=== PATIENT | female | born 1960 | race Caucasian/White ===

== ENCOUNTER 2020-01-25 09:58 | Emergency (ER) | payer BC, SELFPAY ==
--- NOTE | ~2020-01-25 | XR_ITS ---
XR chest 2V DATE: 01/25/2020 11:01 INDICATION: Cough, congestion, fever, weakness for 6 days TECHNIQUE: PA and lateral views COMPARISON: 01/03/2010 two-view chest FINDINGS: Normal heart size. Mild aortic unfolding. No hilar or mediastinal enlargement. No pulmonary infiltrate or consolidation, pleural effusion or pulmonary vascular congestion or pneumo thorax is detected. Surgical clips, right upper quadrant, consistent with cholecystectomy. IMPRESSION: No active cardiopulmonary disease Status post cholecystectomy Reviewed, dictated and finalized at location B.
[2020-01-25 10:27] VITALS: BP 143/96; PULSE 78; RESP 20; TEMP 37; O2SAT 97
--- NOTE | 2020-01-25 10:43 | ECG_ITS ---
Measurements Intervals [place] Rate: 70 P: 43 HI: 151 QRS: -6 QRSD: 84 T: 11 QT: 376 QTc: 406 Interpretive Statements SINUS RHYTHM VOLTAGE CRITERIA FOR LVH DELAYED PRECORDIAL R/S TRANSITION BORDERLINE T WAVE ABNORMALITY- INFERIOR LEADS BORDERLINE ECG Electronically Signed On 01-25-2020 11:34:49 CDT by Odilon Guevara D.O.
--- NOTE | 2020-01-25 10:44 | ED.GENADULT ---
HPI - General Adult General Chief complaint: Upper Respiratory Infection Stated complaint: fever,sleepy heavyness in chest,Cough History of Present Illness HPI narrative: Lisette is a 59-year-old woman a past medical history of a mood disorder and tobacco use presented to the emergency department with 2 days of flu-like illness. She went home from work 2 days ago with fatigue and body aches. She does a low-grade fever as well as cough and chest heaviness. She also endorses some nausea,mild shortness of breath and lightheadedness. She denies syncope, diaphoresis and vomiting Related Data Home Medications Medication Instructions Recorded Confirmed bupropion HCl 300 mg PO DAILY 01/25/20 01/25/20 fluoxetine 40 mg PO DAILY 01/25/20 01/25/20 Allergies Allergy/AdvReac Type Severity Reaction Status Date / Time codeine Allergy Unknown Verified 01/25/20 10:27 Review of Systems Constitutional: Constitutional: Reports as per HPI Eyes: Eyes: Reports as per HPI ENT: Reports sore throat Cardiovascular: Cardiovascular: Denies rapid heart rate, Denies radiating jaw, neck or arm pain and Denies slow heart rate Respiratory: Respiratory: Reports as per HPI Gastrointestinal: Gastrointestinal: Reports as per HPI Genitourinary: Genitourinary: Reports no additional female genitourinary complaints Musculoskeletal: Comments: admits myalgias Integumentary/Breasts: Skin/Breast: Reports system reviewed and no additional complaints, except as docu Neurologic: Reports system reviewed and no additional complaints, except as documented Psychiatric: Psychiatric: Reports no additional psychiatric complaints Endocrine: Endocrine: Reports no additional endocrine complaints Hematologic/Lymphatic: Hematologic/Lymphatic: Reports no additional hematologic/lymphatic complaints Allergic/Immunologic: Allergic/Immunologic: Reports no additional allergic/immunologic complaints Exam Const: General: no acute distress and alert Orientation/consciousness: patient oriented x3 Limitations: No altered mental status HENMT: Head: normal to inspection Eyes: Conjunctivae: conjunctivae normal Pupils: Equal, round and reactive pupils present EOM: EOMs intact bilaterally Neck: Neck: normal visual inspection and no lymphadenopathy Chest: Chest palpation & inspection: normal inspection of the chest Other: tenderness to palpation over the costal cartilage Resp: Effort & Inspection: normal respiratory effort, not labored and not tachypneic Auscultation: clear to auscultation bilaterally and no wheezes Cardio: Rate: regular rate Rhythm: regular rhythm Heart sounds: no murmurs GI: GI Palp: Yes Soft to palpation and No Tenderness to palpation present (GI) : General: Yes no CVA tenderness Skin: General skin exam: normal color Rashes: no rashes Neuro: General: patient oriented x3 and moves all extremities Extrem: General: normal to inspection Psych: Mental Status: mental status grossly normal Course Course Emergency Course: Lisette was seen and evaluated. Ordered labs, EKG and chest x-ray. She was given Zofran for nausea. Workup was unremarkable for any signs of pneumonia. She did have some borderline T-wave changes in the inferior leads but troponin was negative and her history/ presentation was not consistent with a cardiac cause. She had a mildly elevated creatinine the labs are otherwise unremarkable. She was diagnosed with a URI/bronchitis discharged. Vital Signs Vital signs: Vital Signs Temperature 37.0 C 01/25/20 10:27 Pulse Rate 78 01/25/20 10:27 Respiratory Rate 20 01/25/20 10:27 Blood Pressure 143/96 H 01/25/20 10:27 Pulse Oximetry 97 01/25/20 10:27 Temperature 37.0 C 01/25/20 10:27 Pulse Rate 78 01/25/20 10:27 Respiratory Rate 20 01/25/20 10:27 Blood Pressure 143/96 H 01/25/20 10:27 Pulse Oximetry 97 01/25/20 10:27 Medical Decision Making CAROLYN Narrative Medical deci
--- NOTE | 2020-01-25 11:00 | PC.NURSE ---
Report given to SHEREEN Aldridge
[2020-01-25 11:02] LABS: Influenza Control Valid (Valid)
[2020-01-25 11:13] LABS: Basophils Absolute Auto 0.07 K/mm3 (0.00-0.10); Basophils Percent Auto 0.7 % (0.0-1.0); Eosinophils Absolute Auto 0.11 K/mm3 (0.02-0.50); Eosinophils Percent Auto 1.1 % (1.0-6.0); Hematocrit 45.7 % (35.0-49.0); Hemoglobin 14.9 g/dL (12.0-15.0); Immature Granulocyte Absolute 0.03 K/mm3 (0.00-0.00); Immature Granulocyte Percent A 0.3 % (0.0-0.0); Lymphocytes Absolute Auto 2.02 K/mm3 (1.10-4.50); Lymphocytes Percent Auto 20.4 % (18.0-42.0); Mean Corpuscular HGB Conc 32.6 g/dL (32.0-36.0); Mean Corpuscular Hemoglobin 28.9 pg (27.0-31.0); Mean Corpuscular Volume 88.7 fL (78.0-102.0); Mean Platelet Volume 10.4 fl (9.2-11.8); Monocytes Absolute Auto 0.46 K/mm3 (0.10-0.90); Monocytes Percent Auto 4.6 % (2.0-11.0); Neutrophils Absolute Auto 7.2 K/mm3 (1.7-7.2); Neutrophils Percent Auto 72.9 % (50.0-70.0); Platelet Count Result 259 K/mm3 (150-420); Red Blood Count 5.15 M/mm3 (4.20-5.40); Red Cell Distribution Width 14.1 % (11.6-14.4); White Blood Count 9.9 K/mm3 (4.8-10.8)
[2020-01-25] MEDS: ONDANSETRON HCL ODT 4 MG TABLET PO (11:18)
[2020-01-25 11:31] LABS: Troponin I < 0.02 ng/mL (0.00-0.056)
[2020-01-25 11:33] LABS: Anion Gap 14.1 mmol/L (7-16); Blood Urea Nitrogen 17 mg/dL (7-18); Calcium 8.9 mg/dL (8.5-10.1); Carbon Dioxide 24 mmol/L (21-32); Chloride 106 mmol/L (98-108); Estimated CRCL calculation 52 ml/min; Estimated Glomerular Filt Rate 52; Glucose 96 mg/dL (70-99); Osmolality Calculated 291 mOsm/kg (285-295); Potassium 4.1 mmol/L (3.5-5.1); Sodium 140 mmol/L (136-145)
[2020-01-25 12:12] VITALS: BP 167/98
== END 2020-01-25 12:13 | disposition home or self-care (01) ==
PROVIDERS: Emergency Provider Family Medicine; PCP Internal Medicine
DX: J06.9 Acute upper respiratory infection, unspecified (principal); J40 Bronchitis, not specified as acute or chronic; Z87.891 Personal history of nicotine dependence
CPT/HCPCS: 36415; 71046; 80048; 84484; 85025; 87081; 87804; 87880; 93005; 99283; 99284; A9270

== ENCOUNTER 2020-02-11 10:17 | Outpatient (CLI) | payer BC, SELFPAY ==
--- NOTE | ~2020-02-11 | DEXA_ITS ---
BMD(1) Young-Adult(2) Age-Matched(3) Region (g/cm2) T-score Z-score WHO Classification L1 1.061 -0.6 -0.1 Normal L2 1.111 -0.8 -0.2 Normal L3 1.181 -0.3 0.3 Normal L4 1.350 1.0 1.6 Normal L1-L4 1.188 0.0 0.5 Normal Trend: L1-L4 Change vs Change vs Measured Age BMD(1) Baseline Previous Date (years) (g/cm2) (%) (%) 02/11/2020 [age] 1.188 baseline - 1 - Statistically 68% of repeat scans fall within 1SD (+- 0.010 g/cm2 for AP Spine L1-L4) 2 - [place] (Combined NHANES (ages 20-30) / [employer] (ages 20-40)) AP Spine Reference Population (v112) 3 - Matched for Age, Weight (females 25-100 kg), Ethnic 11 - World Health Organization - Definition of Osteoporosis and Osteopenia for Women: Normal = T-score at or above -1.0 SD; Osteopenia = T-score between -1.0 and -2.5 SD; Osteoporosis = T-score at or below -2.5 SD; (WHO definitions only apply when a young healthy Women reference database is used to determine T-scores.) Printed: 02/11/2020 2:21:15 PM (13.60)76:3.00:50.00:12.0 0.00:10.62 0.60x1.05 25.3:%Fat=36.8% 0.00:0.00 0.00:0.00 Filename: [id number] Scan Mode: Standard;OneScan 37.0 [employer] [id number] BMD(1) Young-Adult(2,7) Age-Matched(3) Region (g/cm2) T-score Z-score WHO Classification Neck Left 0.825 -1.5 -0.7 Osteopenia Right 0.861 -1.3 -0.4 Osteopenia Mean 0.843 -1.4 -0.6 Osteopenia Difference 0.036 0.3 0.3 - Total Left 0.934 -0.6 -0.1 Normal Right 0.953 -0.4 0.1 Normal Mean 0.944 -0.5 0.0 Normal Difference 0.019 0.1 0.1 - Hip [place] Length Comparison (mm) (Right = 105.2 mm) (Mean = 105.8 mm) (Left = 103.1 mm) Trend: Total Mean Change vs Change vs Measured Age BMD(1) Baseline Previous Date (years) (g/cm2) (%) (%) 02/11/2020 59.8 0.944 baseline - 1 - Statistically 68% of repeat scans fall within 1SD (+- 0.010 g/cm2 for DualFemur Total) 2 - [place] (Combined NHANES (ages 20-30) / [employer] (ages 20-40)) Femur Reference Population (v112) 3 - Matched for Age, Weight (females 25-100 kg), Ethnic 7 - DualFemur Total T-score difference is 0.1. Asymmetry is None. 11 - World Health Organization - Definition of Osteoporosis and Osteopenia for Women: Normal = T-score at or above -1.0 SD; Osteopenia = T-score between -1.0 and -2.5 SD; Osteoporosis = T-score at or below -2.5 SD; (WHO definitions only apply when a young healthy Women reference database is used to determine T-scores.) Printed: 02/11/2020 2:21:15 PM (13.60); Filename: [id number]; Right Femur; 20.1:%Fat=35.1%; Neck Angle (deg)= 61; Scan Mode: Standard 37.0 uGy; Left Femur; 20.3:%Fat=39.2%; Neck Angle (deg)= 59; Scan Mode: Standard 37.0 uGy [employer] [id number] Dear Patience Rodgers, Your patient Lisette Moreau completed a BMD test on 02/11/2020 using the [employer]ony DXA System (analysis version: 13.60) manufactured by [employer]. The following summarizes the results of our evaluation. PATIENT BIOGRAPHICAL: Name: Lisette Moreau Date: 1960 Height: 64.0 in. Gender: Female Exam Date: 02/11/2020 Weight: 182.0 lbs. [employer]
--- NOTE | ~2020-02-11 | MM_ITS ---
EXAMINATION: MM screening [facility] BI w juan HISTORY: Screening mammogram TECHNIQUE: Craniocaudal and mediolateral oblique 3-D tomosynthesis images were obtained and synthetic 2-D images were generated. CAD analysis was submitted and interpreted. COMPARISON: 01/12/2015, 01/05/2010 BREAST PARENCHYMAL COMPOSITION: There are scattered areas of fibroglandular density. FINDINGS: There is no evidence of suspicious mass, calcification, or architectural distortion to sugg est malignancy in either breast. There has been no suspicious interval change. IMPRESSION: 1. No mammographic evidence of malignancy. 2. Recommend routine screening mammography in one year. BI-RADS Category 2: Benign finding(s). Reviewed, dictated and finalized at location A.
--- NOTE | ~2020-02-11 | CT_ITS ---
EXAMINATION:CT lung screening DATE: 02/11/2020 12:04 INDICATION: Personal history of tobacco dependence. Current smoker with 41 pack year history. TECHNIQUE: Computed tomography (CT) of the chest was performed without intravenous contrast. Automate d exposure control and iterative reconstruction technique were employed. The dose-length product (DLP ) was 119.78 mGy-cm. COMPARISON: None. FINDINGS: There is moderate emphysema. There is a 3 mm nodule in left lower lobe. There is mild atele ctasis bilaterally. There is a 3 mm nodule in right upper lobe. A calcified right lung nodule and carmella cified right paratracheal lymph nodes are consistent with old granulomatous disease. No pleural effus ion. The heart size is normal. No pericardial effusion. There are changes of cholecystectomy. There i s mild thoracic spondylosis. IMPRESSION: 1. Lung-RADS category 2: Benign appearance or behavior. Continue annual screening with noncontrast lo w-dose chest CT in 12 months. Reviewed, dictated and finalized at location A. IMPRESSION: 1. Lung-RADS category 2: Benign appearance or behavior. Continue annual screeni ng with noncontrast low-dose chest CT in 12 months.
== END 2020-02-11 10:18 | disposition home or self-care (01) ==
LOC: CHSIMG 10:21
PROVIDERS: PCP Internal Medicine; Visit Provider Internal Medicine
DX: Z12.2 Encounter for screening for malignant neoplasm of respiratory organs (principal); Z87.891 Personal history of nicotine dependence; Z12.31 Encounter for screening mammogram for malignant neoplasm of breast; Z13.820 Encounter for screening for osteoporosis
CPT/HCPCS: 77063; 77067; 77080; G0297

== ENCOUNTER 2020-03-10 08:31 | Outpatient (CLI) | payer BC, SELFPAY | END 2020-03-10 08:32 | disposition home or self-care (01) | LOC: CHSCARD 08:33 | PROVIDERS: PCP Internal Medicine; Visit Provider Internal Medicine | DX: J44.9 Chronic obstructive pulmonary disease, unspecified (principal) | CPT/HCPCS: 94060; 94726; 94729 ==

== ENCOUNTER 2020-03-11 19:55 | Inpatient (IN) | payer BC, SELFPAY ==
--- NOTE | ~2020-03-11 | US_ITS ---
EXAMINATION: US right upper quadrant DATE: 03/14/2020 09:52 INDICATION: Persistent epigastric pain. Pancreatitis. TECHNIQUE: Multiple grayscale and Doppler ultrasound images of the abdomen were obtained. COMPARISON: CT dated 03/11/2020 and 03/09/2010 FINDINGS: The pancreatic head and body are normal in appearance. The pancreatic tail is not visualized. Visual is proximal inferior vena cava is normal. Liver has normal echogenicity and contour, with a smooth s urface. No liver lesion identified. No intrahepatic biliary duct dilation suspected. Portal venous fl ow was seen in the hepatopetal, normal direction and has normal Doppler waveform. Gallbladder is surg ically absent. The common bile duct measures 5-6 mm in diameter which is normal. Visualized 1.6 cm an echoic cyst at the upper pole of the right kidney which demonstrates normal contour with no hydroneph rosis. IMPRESSION: 1. Status post cholecystectomy. 2. Normal-appearing pancreas and no intra or extrahepatic biliary ductal dilation. Reviewed, dictated and finalized at location A. IMPRESSION: 1. Status post cholecystectomy. 2. Normal-appearing pancreas and no intra or extrahepatic biliary ductal dilati on.
--- NOTE | ~2020-03-11 | CT_ITS ---
EXAMINATION: 1. CTA chest PE protocol 2. CT abdomen pelvis w con DATE: 03/12/2020 17:48 INDICATION: Acute pancreatitis. Chest pain. TECHNIQUE: Computed tomography angiography (CTA) of the chest was performed with 100 mL Omnipaque-350 intravenous contrast timed to evaluate the pulmonary arteries. Coronal maximum intensity projection 3D-reconstructions were created by the technologist. Computed tomography (CT) of the abdomen and pelv is was performed with intravenous contrast. Automated exposure control and iterative reconstruction t echnique were employed. The dose-length product was 1068.80 mGy-cm. COMPARISON: CT abdomen and pelvis 03/11/2020, chest CT 02/11/2020 FINDINGS: CTA chest: There is moderate emphysema. Lungs demonstrate mild atelectasis. No pleural effusion. The heart size is normal. No pericardial effusion. There is no pulmonary embolus. There is mild mediastin al and right hilar lymphadenopathy, likely reactive. There is mild thoracic spondylosis. CT abdomen and pelvis: The liver and spleen are normal. There are changes of cholecystectomy. There i s fat stranding around the head of the pancreas, consistent with acute interstitial pancreatitis. The re is incomplete pancreas divisum. The adrenal glands are normal. There are cysts in the kidneys rayshawn uring up to 2.0 cm on the right. There is diverticulosis of the colon without evidence of diverticuli tis. There are no dilated loops of bowel. The appendix is normal. There are no pathologically enlarge d lymph nodes. There is no free intraperitoneal fluid. There is moderate lumbar spondylosis. IMPRESSION: 1. Mild findings of acute interstitial pancreatitis. 2. No pulmonary embolus. 3. Moderate emphysema. 4. Mild mediastinal and right hilar lymphadenopathy, likely reactive. Reviewed, dictated and finalized at location A. IMPRESSION: 1. Mild findings of acute interstitial pancreatitis. 2. No pulmonary embolus. 3. Moderate emphysema. 4. Mild mediastinal and right hilar lymphadenopathy, likely reactive.
--- NOTE | ~2020-03-11 | CT_ITS ---
EXAMINATION: CT abdomen pelvis w con DATE: 03/11/2020 21:48 INDICATION: Epigastric pain for 2 days TECHNIQUE: Computed tomography (CT) of the abdomen and pelvis was performed with 100 cc Omnipaque 350 intravenous contrast. The dose-length product was 551.16 mGy-cm. Automated exposure control and iter ative reconstruction technique were employed. COMPARISON: None. FINDINGS: There is interstitial fibrosis of the lower lobes. Heart size normal. No significant pleura l or pericardial effusion. There are cholecystectomy clips with expected prominence of the bile ducts . There is mild prominence of the pancreatic head, although no discrete mass identified. The spleen, adrenal glands are unremarkable. There are low-density masses in both kidneys, most likely benign cys ts. Nonobstructive bowel gas pattern. No lymphadenopathy. Colonic diverticulosis without evidence for div erticulitis. No abnormal pelvic masses or fluid collections. No free air or free fluid. IMPRESSION: 1. No acute abdominal abnormality. No findings to account for patient's symptoms. Reviewed, dictated and finalized at location A. IMPRESSION: 1. No acute abdominal abnormality. No findings to account for patient's symptom s.
--- NOTE | ~2020-03-11 | XR_ITS ---
XR chest 1V portable 03/11/2020 20:53 Indication: Chest pain Procedure: AP portable chest Comparison: 01/25/2020 Findings: Subtle bibasilar infiltrates. Heart size normal. No pleural effusion or pneumothorax. No ac [place] osseous abnormality. Impression: 1: Subtle bibasilar infiltrates may represent atelectasis, developing pneumonia or less likely edema. Reviewed, dictated and finalized at location A. Impression: 1: Subtle bibasilar infiltrates may represent atelectasis, developing pneumonia or less likely edema.
--- NOTE | 2020-03-11 20:08 | ECG_ITS ---
Measurements Intervals [place] Rate: 82 P: 0 [place]: 124 QRS: -1 QRSD: 86 T: 44 QT: 372 QTc: 435 Interpretive Statements SINUS RHYTHM VOLTAGE CRITERIA FOR LVH BASELINE ARTIFACT- II, III, AVL, AVF BORDERLINE ECG Electronically Signed On 03-12-2020 7:23:55 CDT by Odilon Guevara D.O.
[2020-03-11 20:10] VITALS: BP 164/92; PULSE 74; PULSE 84; RESP 20; TEMP 37; O2SAT 95
--- NOTE | 2020-03-11 20:12 | ED.CHESTPAIN ---
HPI - Chest Pain General Chief Complaint: Chest Pain Stated Complaint: chest pain Time Seen by Provider: 03/11/20 20:05 Source: patient Mode of arrival: ambulatory Limitations: no limitations History of Present Illness HPI narrative: 59-year-old woman comes in today complaining of lower substernal chest pain that has been present since yesterday. She states that was intermittent at onset and now is constant. She states that it feels like pressure and that it is similar to when she had gallbladder problems. She states she feels nauseous and lightheaded with the pain but has had no sweats, vomiting, syncope, or palpitations. She states that she has pain in her neck at present and earlier she had pain in her left shoulder. At present the pain is like a band around her lower chest and goes through to her back. She states that she has chronic cough, shortness of breath and sore throat but those are unchanged.. She denies sputum production, cold symptoms, sick exposures, or travel. MD complaint: chest pain Timing of current episode: constant Prior episodes: No Onset: during rest Pain location: substernal Pain radiation: back, neck and left shoulder Severity: moderate Quality: other ( Pressure) Relieving factors: nothing Exacerbating factors: nothing Context: new medications ( cholesterol pill) Associated symptoms: nausea, vomiting, diaphoresis, dyspnea and cough Treatment prior to arrival: none Risk Factors Coronary artery disease risk factors: smoking history and hypertension Related Data On Oral Contraceptives: No Home Medications Medication Instructions Recorded Confirmed bupropion HCl 300 mg PO DAILY 01/25/20 03/11/20 fluoxetine 40 mg PO DAILY 01/25/20 03/11/20 atorvastatin 20 mg PO HS 03/11/20 03/11/20 ergocalciferol (vitamin D2) 50,000 unit PO WEEKLY 03/11/20 03/11/20 [Vitamin D2] Allergies Allergy/AdvReac Type Severity Reaction Status Date / Time codeine AdvReac Nightmare Verified 03/11/20 20:30 Review of Systems Constitutional: Constitutional: Denies chills, Denies fever(s) and Denies weakness Eyes: Eyes: Denies change in vision and Denies photophobia ENT: Denies dysphagia, Denies nasal congestion and Reports sore throat ( chronic) Cardiovascular: Cardiovascular: Reports chest pain, Denies rapid heart rate, Reports radiating jaw, neck or arm pain and Denies slow heart rate Respiratory: Respiratory: Denies chest congestion, Reports cough ( chronic), Reports dyspnea ( chronic) and Denies wheezing Gastrointestinal: Gastrointestinal: Denies abdominal pain, Denies diarrhea, Reports nausea and Denies vomiting Genitourinary: Genitourinary: Denies hematuria, Denies nocturia and Denies dysuria Musculoskeletal: Musculoskeletal: Denies arthralgias and Denies joint swelling Integumentary/Breasts: Skin/Breast: Denies pruritus, Denies erythema and Denies rash Neurologic: Denies confusion, Denies vertigo, Denies dizziness and Denies syncope Psychiatric: Psychiatric: Denies anxiety and Denies depression Hematologic/Lymphatic: Hematologic/Lymphatic: Denies easy bleeding and Denies easy bruising Allergic/Immunologic: Allergic/Immunologic: Denies lip swelling and Denies wheezing PMFSH Past Medical History Medical History COPD (chronic obstructive pulmonary disease) Depression Dyslipidemia Surgical History Surgical History History of S/P cholecystectomy Social History Social History Smoking packs per day: 10 Smoking cigarettes per day: 200.0 Years smoked: 46 Smoking pack-years: 460.00 Smoking status: Current every day smoker Tobacco type: cigarettes Second hand tobacco smoke exposure: Yes Alcohol intake: never Substance use: former Substance use type: crack/cocaine Last use: 15 yrs ago Living arrangements:
[2020-03-11] MEDS: ASPIRIN 81 MG CHEWABLE TABLET 324 MG PO (20:19)
[2020-03-11] MEDS: ONDANSETRON INJ 4 MG/2 ML VIAL IV PUSH (20:20)
[2020-03-11] MEDS: PANTOPRAZOLE SODIUM IV 40 MG VIAL IV PUSH (20:21)
[2020-03-11] MEDS: NITROGLYCERIN SL 0.4 MG TABLET SUBLINGUAL (20:24)
[2020-03-11 20:26] LABS: Basophils Absolute Auto 0.06 K/mm3 (0.00-0.10); Basophils Percent Auto 0.5 % (0.0-1.0); Eosinophils Absolute Auto 0.14 K/mm3 (0.02-0.50); Eosinophils Percent Auto 1.1 % (1.0-6.0); Hemoglobin 13.9 g/dL (12.0-15.0); Immature Granulocyte Absolute 0.04 K/mm3 (0.00-0.00); Immature Granulocyte Percent A 0.3 % (0.0-0.0); Lymphocytes Absolute Auto 2.34 K/mm3 (1.10-4.50); Lymphocytes Percent Auto 19.2 % (18.0-42.0); Mean Corpuscular HGB Conc 32.3 g/dL (32.0-36.0); Mean Corpuscular Hemoglobin 28.7 pg (27.0-31.0); Mean Corpuscular Volume 88.7 fL (78.0-102.0); Mean Platelet Volume 10.4 fl (9.2-11.8); Monocytes Absolute Auto 0.79 K/mm3 (0.10-0.90); Monocytes Percent Auto 6.5 % (2.0-11.0); Neutrophils Absolute Auto 8.8 K/mm3 (1.7-7.2); Neutrophils Percent Auto 72.4 % (50.0-70.0); Platelet Count Result 252 K/mm3 (150-420); Red Blood Count 4.85 M/mm3 (4.20-5.40); Red Cell Distribution Width 13.9 % (11.6-14.4); White Blood Count 12.2 K/mm3 (4.8-10.8)
[2020-03-11 20:29] VITALS: BP 132/79; PULSE 86; RESP 18; O2SAT 96
--- NOTE | 2020-03-11 20:30 | PC.NURSE ---
2ND SL NITROGLYCERIN ADMINISTERED WITH NO RELIEF.
[2020-03-11 20:42] LABS: Partial Thromboplastin Time 26.7 SEC (22.3-31.6); Prothrombin Time 10.2 Seconds (9.64-11.0)
[2020-03-11 20:44] LABS: Alanine Aminotransferase 38 U/L (14-59); Albumin Level 3.2 g/dL (3.4-5.0); Alkaline Phosphatase 152 U/L (46-116); Anion Gap 17.3 mmol/L (7-16); Aspartate Amino Transferase 25 U/L (15-37); Bilirubin,Total 0.2 mg/dL (0.00-1.00); Blood Urea Nitrogen 17 mg/dL (7-18); Calcium 9.2 mg/dL (8.5-10.1); Carbon Dioxide 23 mmol/L (21-32); Chloride 106 mmol/L (98-108); D Dimer 1.21 mg/L (0.19-0.50); Estimated CRCL calculation 47 ml/min; Estimated Glomerular Filt Rate 46; Glucose 123 mg/dL (70-99); Osmolality Calculated 298 mOsm/kg (285-295); Potassium 3.3 mmol/L (3.5-5.1); Sodium 143 mmol/L (136-145); Total Protein 7.4 g/dL (6.4-8.2)
[2020-03-11 20:45] LABS: Troponin I < 0.02 ng/mL (0.00-0.056)
[2020-03-11 20:48] LABS: BNP 65.8 pg/mL (0-100)
[2020-03-11 21:07] LABS: Lipase 10094 U/L (73-393)
[2020-03-11] MEDS: SODIUM CHLORIDE 0.9% IV 1,000 ML 999 ML IV CONT (21:14)
[2020-03-11 21:46] VITALS: BP 148/83; PULSE 68; RESP 18; O2SAT 97
--- NOTE | 2020-03-11 22:26 | PC.NURSE ---
Pts daughter updated on pt status per Pt request.
[2020-03-11 22:40] VITALS: RESP 18; O2SAT 98
[2020-03-11 23:15] VITALS: BMI 31.8
--- NOTE | 2020-03-11 23:15 | ADMGEN ---
This patient, Lisette Moreau, was admitted to 2nd Floor Room 210-2. Patient oriented to hospital policies and general routines including ID bracelet, bed and alarms, visiting hours, pain management, procedures, bathroom and other care routines, personal items, smoking policy, room service/diet, and visiting hours. Valuables list has been completed. Information on how to activate the Rapid Response Team has been discussed. Patient encouraged to report perceived risks to care and to ask questions if they do not understand what they are told or what they should do.
[2020-03-11 23:24] LABS: Add Urine Microscopic? YES; Appearance Urine Cloudy (Clear); Bilirubin Urine Negative (Negative); Blood Urine 2+ (Negative); Color Urine Yellow (Yellow); Glucose Urine UA Negative (Negative); Ketones Urine Negative (Negative); Leukocyte Esterase Ur Negative LEU/UL (Negative); Nitrate Urine Negative (Negative); Protein Urine Negative (Negative); Urobilinogen Urine 0.2 mg/dL (0.2-1.0); pH Urine 6.5 (5.0-8.0)
[2020-03-11] MEDS: HYDROMORPHONE HCL 2 MG/ML VIAL 0.5 MG IV PUSH (23:28)
[2020-03-11] MEDS: KCL 20 MEQ/SW 100 ML 100 ML 50 MEQ IVPB (23:33)
[2020-03-11] MEDS: DEXTROSE 5%/0.45% SOD CHL 1,000 ML 150 ML IV CONT (23:34)
[2020-03-11] MEDS: NICOTINE (*PBKC) 14 MG PATCH 1 PATCH TRANSDERM (23:34)
[2020-03-11 23:42] LABS: Squamous Epithelial Cell Urine Many /hpf (Few); WBC Urine 0-3 /hpf (0-3)
[2020-03-11 23:43] LABS: Bacteria Urine Trace /hpf
[2020-03-12 01:11] LABS: Troponin I < 0.02 ng/mL (0.00-0.056)
--- NOTE | 2020-03-12 01:40 | PC.NURSE ---
pt reports pain, medication given see MAR, iv fluids infusing, denies any other needs at this time
[2020-03-12] MEDS: HYDROMORPHONE HCL 2 MG/ML VIAL 1 MG IV PUSH ×2 (01:42→06:17)
--- NOTE | 2020-03-12 02:16 | PC.NURSE ---
pt sleeping, respirations even and regular, no evidence of distress noted, iv fluids infusing per order
--- NOTE | 2020-03-12 04:18 | PC.NURSE ---
pt reports feeling better, denies any needs at this time
--- NOTE | 2020-03-12 04:50 | PC.NURSE ---
lab at bedside
[2020-03-12 05:40] LABS: Basophils Absolute Auto 0.05 K/mm3 (0.00-0.10); Basophils Percent Auto 0.6 % (0.0-1.0); Eosinophils Absolute Auto 0.13 K/mm3 (0.02-0.50); Eosinophils Percent Auto 1.5 % (1.0-6.0); Hematocrit 39.3 % (35.0-49.0); Hemoglobin 12.6 g/dL (12.0-15.0); Immature Granulocyte Absolute 0.01 K/mm3 (0.00-0.00); Immature Granulocyte Percent A 0.1 % (0.0-0.0); Lymphocytes Percent Auto 27.3 % (18.0-42.0); Mean Corpuscular HGB Conc 32.1 g/dL (32.0-36.0); Mean Corpuscular Volume 90.6 fL (78.0-102.0); Mean Platelet Volume 10.7 fl (9.2-11.8); Monocytes Absolute Auto 0.61 K/mm3 (0.10-0.90); Monocytes Percent Auto 7.2 % (2.0-11.0); Neutrophils Absolute Auto 5.3 K/mm3 (1.7-7.2); Neutrophils Percent Auto 63.3 % (50.0-70.0); Platelet Count Result 202 K/mm3 (150-420); Red Blood Count 4.34 M/mm3 (4.20-5.40); Red Cell Distribution Width 14.2 % (11.6-14.4); White Blood Count 8.4 K/mm3 (4.8-10.8)
[2020-03-12 06:07] LABS: Alanine Aminotransferase 32 U/L (14-59); Albumin Level 2.8 g/dL (3.4-5.0); Alkaline Phosphatase 136 U/L (46-116); Anion Gap 14.2 mmol/L (7-16); Aspartate Amino Transferase 21 U/L (15-37); Bilirubin,Total 0.2 mg/dL (0.00-1.00); Blood Urea Nitrogen 13 mg/dL (7-18); Calcium 8.1 mg/dL (8.5-10.1); Carbon Dioxide 26 mmol/L (21-32); Chloride 108 mmol/L (98-108); Estimated CRCL calculation 54 ml/min; Estimated Glomerular Filt Rate 54; Glucose 103 mg/dL (70-99); Osmolality Calculated 298 mOsm/kg (285-295); Potassium 4.2 mmol/L (3.5-5.1); Sodium 144 mmol/L (136-145)
[2020-03-12 06:11] LABS: Troponin I < 0.02 ng/mL (0.00-0.056)
[2020-03-12] MEDS: DEXTROSE 5%/0.45% SOD CHL 1,000 ML 150 ML IV CONT (06:15)
[2020-03-12 08:00] VITALS: BP 136/77; PULSE 74; RESP 18; TEMP 36.2; O2SAT 93
[2020-03-12 08:01] VITALS: BP 140/77
[2020-03-12 08:05] VITALS: BP 153/90
--- NOTE | 2020-03-12 08:31 | ECG_ITS ---
Measurements Intervals [place] Rate: 63 P: 31 [place]: 174 QRS: 9 QRSD: 86 T: 29 QT: 419 QTc: 429 Interpretive Statements SINUS RHYTHM BASELINE ARTIFACT- I, II, III, AVL, AVF NORMAL ECG Electronically Signed On 03-12-2020 18:38:16 CDT by Odilon Guevara D.O.
[2020-03-12] MEDS: ONDANSETRON INJ 4 MG/2 ML VIAL (08:58)
[2020-03-12 09:54] LABS: Amphetamine Screen Urine Negative (Negative); Barbiturate Screen Urine Negative (Negative); Benzodiazepines Screen Urine Negative (Negative); Cannabinoid Screen Urine Positive (Negative); Cocaine Screen Urine Negative (Negative); Methadone Screen Urine Negative (Negative); Opiate Screen Urine Negative (Negative); Phencyclidine Screen Urine Negative (Negative)
[2020-03-12 10:08] LABS: Troponin I < 0.02 ng/mL (0.00-0.056)
[2020-03-12] MEDS: FLUOXETINE HCL 10 MG CAPSULE 40 MG PO (10:34)
[2020-03-12] MEDS: ENOXAPARIN 40 MG/0.4 ML SYRINGE SUB-Q (10:35)
[2020-03-12] MEDS: buPROPion HCL XL (24 HR) 150 MG TABCR 300 MG PO (10:42)
[2020-03-12] MEDS: ONDANSETRON INJ 4 MG/2 ML VIAL IV PUSH ×2 (11:41→20:57)
[2020-03-12] MEDS: LORATADINE 10 MG TABLET PO (11:41)
[2020-03-12] MEDS: LACTATED RINGERS 1,000 ML 200 ML IV CONT ×3 (11:42→23:30)
[2020-03-12 12:26] LABS: D Dimer 1.08 mg/L (0.19-0.50)
--- NOTE | 2020-03-12 13:57 | PC.NURSE ---
0830 erp aware of severe head ache. c/o n/v.. dry heaves. c/o feeling cold sweats.
--- NOTE | 2020-03-12 14:00 | PC.NURSE ---
0900 cont to c/ of head ache. denies chest pain.. cool compresses on forehead.
[2020-03-12] MEDS: METOCLOPRAMIDE HCL INJ 10 MG/2 ML VIAL IV PUSH (14:39)
--- NOTE | 2020-03-12 14:42 | PC.NURSE ---
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 c/o head ache comes and goes does not really go away all the way. at this time it is back and worse than ever. charles chest. claims it gasy and bletching pain in upper epigastric area. cool cloths off and on. no c/o cold sweats. xray wants #18 in ac for test. several attempts by several people and unable to obtain. cork tile floor layer is aware. see mar for meds.
--- NOTE | 2020-03-12 14:47 | PC.NURSE ---
1050 pt had emesis of yellow with oral am meds in it. manager inpatient aware. cool cloth on and off forehead. walks to br with stand by gait. denies cp but cont to have headache.
--- NOTE | 2020-03-12 14:50 | PC.NURSE ---
tele shows sr with rates of 70's
--- NOTE | 2020-03-12 15:03 | PM.IMHP ---
H&P: HPI History of Present Illness Chief complaint: chest pain Narrative: Lisette Moreau is a 59 year old female admitted with chest pain, lower substernal chest pain that started on March 10 ( the day before she came in to the ED) that was originally intermittent pain and became more constant pain. She felt the pain was like pressure and that it is similar to when she had gallbladder problems. She has been nauseous and lightheaded with the pain but has had no sweats, vomiting, syncope, or palpitations. She states that she has pain in her neck at present and earlier she had pain in her left shoulder. At present the pain is like a band around her lower chest and goes through to her back. She states that she has chronic cough, shortness of breath and sore throat but those are unchanged.. She denies sputum production, cold symptoms, sick exposures, or travel. When asked about any exposure to the COVID virus or anyone that could have had a fever or was coughing, she stated she has been home and off work due to her COPD history Dr. Rodgers has given her leave from work. But she did admit that her daughter isn't register nurse at [facility] [employer], but that her daughter has not had any fevers or any coughing. Lisette does admit to drinking alcohol about once a week, socially. She does admit to having a poor diet including fried foods, fatty foods. She does admit to using marijuana approximately once a week or once every 2 weeks. She does have a significantly elevated hyperlipidemia, and stated that her physician did just recently started her on a statin medication for that. [place] 14[address] High and she was admitted for acute pancreatitis , as well as to rule out cardiac concerns. Today Lisette is biggest concern has been a headache. She feels the headache could be withdrawal from nicotine, despite the fact that she has a nicotine patch. She stated headache could also be from not eating or being able to eat. She admitted the headache could also be from withdrawal from marijuana or alcohol, but she stated that she doubts that as she feels she does not do enough marijuana or alcohol to have withdrawal. This morning they tried IV Dilaudid to treat her headache, but this did not seem to relieve her headache and did bring upon more chest discomfort. We then tried Tylenol oral and IV, with no relief. I then ordered Reglan and Benadryl IV. Placed her on continuous cardiac telemetry monitoring. troponins x4 have all been within normal limits, her EKG looked normal. Her abdominal CT scan at admission was normal in without any concerns. Her D-dimer was elevated at 1.21, and improved to 1.08 today with IV fluids. She has blood cultures x2 that are pending. Ordered urine culture. Her chest x-ray showed bibasilar infiltrates with atelectasis and pneumonia possible. Will order incentive spirometry and albuterol inhaler. Ordered a CT angio PE protocol of the chest abdomen pelvis. LFTs and bilirubin are within normal limits. Creatinine 1.05, potassium 4.2. white count 8.4, no fever since admission, will continue her IV fluids as 200 mls an hour of LR. Urine drug screen showed marijuana. Checking Mag and phos level. Review of Systems Review of Systems: All systems reviewed & are unremarkable except as noted in HPI and below Constitutional: Constitutional: Reports as per HPI Eyes: Eyes: Reports as per HPI ENT: Reports as per HPI Cardiovascular: Cardiovascular: Reports as per HPI Respiratory: Respiratory: Reports as per HPI Gastrointestinal: Gastrointestinal: Reports as per HPI Integumentary/Breasts: Skin/Breast: Reports as per HPI Neurologic: Reports as per HPI, Denies Abnormal speech present, Denies confusion, Reports headache(s) and Denies numbness Psychiatric: Psychiatric: Reports as per HPI [facility] Past Medical History Medical History COPD (chronic obstructive pulmonary disease) D
[2020-03-12 16:00] VITALS: BP 136/75; PULSE 78; RESP 18; TEMP 37.1; O2SAT 92
--- NOTE | 2020-03-12 16:45 | PC.NURSE ---
health care marketing specialist aware of c/o blair come and goes claims pain is 3-5. denies any cp. c/o upper epigastric discomfort and bletching at time. cool compresses on and off. sr on tele.
[2020-03-12 18:11] LABS: Hemoglobin A1C 6.1 % (<5.7)
[2020-03-12 18:23] LABS: Magnesium 1.8 mg/dL (1.8-2.4)
[2020-03-12 18:27] LABS: Creatine Kinase 76 U/L (26-192)
[2020-03-12 18:33] LABS: Lipase 3362 U/L (73-393)
--- NOTE | 2020-03-12 18:40 | PC.NURSE ---
down and back from xray.iv fluids are on. denies any pain at this time. no headache and no cp
[2020-03-12 20:00] VITALS: PULSE 72
[2020-03-12 20:42] VITALS: BP 155/85; PULSE 74; RESP 16; TEMP 36.4; O2SAT 93
[2020-03-12] MEDS: ALBUTEROL SULFATE (*SP) INHALER 2 PUFF INHALATION (20:57)
--- NOTE | 2020-03-12 22:51 | P.PNCROSS_ITS ---
Event Note Event Note Event Note: For this patient encounter, I reviewed the FINANCIAL CONTROLLER or PA documentation, treatment plan, and medical decision making; and I had [id number] time with this patient. Abdomen is soft with epigastric tenderness to deep palpation.
--- NOTE | 2020-03-12 22:51 | PM.EVENT ---
Event Note Event Note Event Note: For this patient encounter, I reviewed the ADOBE FLEX DEVELOPER or PA documentation, treatment plan, and medical decision making; and I had [id number] time with this patient. Abdomen is soft with epigastric tenderness to deep palpation.
[2020-03-13] VITALS (7 sets, daily range): BP systolic 141–157; BP diastolic 77–97; PULSE 65–91; RESP 16–20; TEMP 36.6–37.1; O2SAT 93–98
[2020-03-13] MEDS: ACETAMINOPHEN 500 MG TABLET 1000 MG PO (03:56)
[2020-03-13] MEDS: LACTATED RINGERS 1,000 ML 200 ML IV CONT ×4 (03:57→19:55)
[2020-03-13] MEDS: ONDANSETRON INJ 4 MG/2 ML VIAL IV PUSH ×3 (03:57→19:55)
[2020-03-13 06:02] LABS: Mean Corpuscular HGB Conc 31.7 g/dL (32.0-36.0); Mean Corpuscular Hemoglobin 28.5 pg (27.0-31.0); Mean Corpuscular Volume 89.9 fL (78.0-102.0); Platelet Count Result 224 K/mm3 (150-420); Red Blood Count 4.56 M/mm3 (4.20-5.40); Red Cell Distribution Width 13.6 % (11.6-14.4); White Blood Count 8.9 K/mm3 (4.8-10.8)
[2020-03-13] MEDS: ALBUTEROL SULFATE (*SP) INHALER 2 PUFF INHALATION ×4 (06:11→19:54)
[2020-03-13 06:24] LABS: Alanine Aminotransferase 31 U/L (14-59); Alkaline Phosphatase 140 U/L (46-116); Anion Gap 12.7 mmol/L (7-16); Aspartate Amino Transferase 24 U/L (15-37); Bilirubin,Total 0.2 mg/dL (0.00-1.00); Blood Urea Nitrogen 7 mg/dL (7-18); Calcium 8.5 mg/dL (8.5-10.1); Carbon Dioxide 30 mmol/L (21-32); Chloride 106 mmol/L (98-108); Estimated CRCL calculation 60 ml/min; Estimated Glomerular Filt Rate > 60; Glucose 88 mg/dL (70-99); Osmolality Calculated 297 mOsm/kg (285-295); Potassium 3.7 mmol/L (3.5-5.1); Sodium 145 mmol/L (136-145); Total Protein 6.5 g/dL (6.4-8.2)
[2020-03-13 06:37] LABS: Lipase 8708 U/L (73-393)
[2020-03-13] MEDS: NICOTINE (*PBKC) 14 MG PATCH 1 PATCH TRANSDERM (08:05)
[2020-03-13] MEDS: ENOXAPARIN 40 MG/0.4 ML SYRINGE SUB-Q (08:05)
[2020-03-13] MEDS: FENTANYL 12 MCG/HR PATCH TRANSDERM (08:56)
[2020-03-13] MEDS: SUCRALFATE SUSP 100 MG/ML 10 ML UDC 1000 MG PO (11:25)
[2020-03-13] MEDS: FLUOXETINE HCL 10 MG CAPSULE 40 MG PO (11:27)
[2020-03-13] MEDS: buPROPion HCL XL (24 HR) 150 MG TABCR 300 MG PO (11:28)
[2020-03-13] MEDS: LORATADINE 10 MG TABLET PO (11:32)
--- NOTE | 2020-03-13 12:03 | PM.IMPN ---
Progress Note: A&P Assessment and Plan (1) Acute pancreatitis: Qualifiers: Acute pancreatitis complication: no infection or necrosis Pancreatitis type: unspecified pancreatitis type Qualified Code(s): K85.90 - Acute pancreatitis without necrosis or infection, unspecified Code(s): K85.90 - Acute pancreatitis without necrosis or infection, unspecified Status: Acute Assessment and Plan: completed the dextrose IV fluids and converted to LR continuous IV fluids at 200 mL an hour patient's lipase level was over 10,000 admission then 3362 late yesterday afternoon, then back up at 8708 this morning (all while remaining NPO). Repeating a lipase level now to see where her trend is going continue NPO status until we see a lipase level improve and pain resolving. continue the Pepcid and Protonix and carafate. ordered IV Benadryl and IV Reglan in efforts to improve her headache and her epigastric pain ordered oral Tylenol or IV Tylenol p.r.n. as another pain relief option ordered low-dose fentanyl patch p.r.n. for pain relief since the patient has codeine allergies as well as appears to not do well with Dilaudid IV either today. after discharge she should follow-up with GI for an EGD and a colonoscopy I have encouraged her to stop using marijuana, stop using alcohol, and improve her diet. US of abdomen ordered for tomorrow. (2) Dyslipidemia: Code(s): E78.5 - Hyperlipidemia, unspecified Status: Acute Assessment and Plan: There is no record of her lipid panel in our blood work, but since her primary care doctor already started her on atorvastatin I will not order another lipid panel this time. Since the atorvastatin is her most recent new med, and we know there is troubles with statins for some people, I will order CK-MB levels just to confirm no issues with that. Continue holding her atorvastatin from home dose. restart statin at discharge. Ordered an A1c level today. (3) COPD (chronic obstructive pulmonary disease): Code(s): J44.9 - Chronic obstructive pulmonary disease, unspecified Status: Acute Assessment and Plan: Her chest x-ray showed bibasilar infiltrates, atelectasis versus pneumonia she has had no fevers, her white count is 8.4, no cough and no wheezing per auscultation, no sputum production ordered albuterol inhaler ordered incentive spirometer Q hour use getting a CT angio PE protocol due to her elevated D-dimer as well as these chest x-ray results and her persistent chest/epigastric pain (4) Head ache: Code(s): R51 - Headache Status: Acute Assessment and Plan: treating with IV Reglan and IV Benadryl tried using oral and IV Tylenol tried using IV Dilaudid fentanyl patch low-dose p.r.n. order remains in case her pain is still uncontrolled would recommend head CT and carotid ultrasound Dopplers in the morning if no resolution ordered neuro checks Q shift (5) Elevated d-dimer: Code(s): R79.89 - Other specified abnormal findings of blood chemistry Status: Acute Assessment and Plan: her D-dimer at admission was 1.21 her D-dimer yesterday was 1.08 following continuous IV fluids ordered a CT angio PE protocol of chest abdomen pelvis today she continues to have complaints of pain ranging from 5/10 to 10/10 located in her chest lower mid chest, epigastric area , despite appearing comfortable when walking in the room or when resting in her bed. Continue IV fluids at 200 mils an hour her urinalysis showed blood 2+, rbc's 11-20 high she was started on Lovenox at admission, and that SQ dose will be continued she has no evidence of a DVT in her lower or upper extremities, no swelling, no pain, no redness placed her on telemetry continuous monitoring due to D-dimer. Subjective Date/time seen: 03/13/20 12:03 Lisette appears to be much more comfortable today than she was yesterday, she denies having a headache t
--- NOTE | 2020-03-13 13:39 | PC.NURSE ---
upon entering room. pt is sitting on side of bed. after talking with staff starts rocking and claims pain is almost as much as when she came in. denies head ache. claims it is not nausea just pain. radiates into back. mailing specialist AWARE OF C/O. SR ON TELE WITH RATES 66
[2020-03-13] MEDS: METOCLOPRAMIDE HCL INJ 10 MG/2 ML VIAL IV PUSH (14:22)
[2020-03-13] MEDS: HYDROMORPHONE HCL 2 MG/ML VIAL 1 MG IV PUSH (14:33)
--- NOTE | 2020-03-13 14:42 | PC.NURSE ---
lying flat in bed. no distress noted. as talks with staf starts thrasing and c/o of the worst abd cramping pain that radiatews to back. denies cp or n/v.
[2020-03-13 16:56] LABS: Lipase 8060 U/L (73-393)
--- NOTE | 2020-03-13 18:46 | PC.NURSE ---
claims abd is feeling better rates it about 2-4. tolerable.
[2020-03-13] MEDS: LORAZEPAM INJ 2 MG/ML VIAL 0.5 MG IV PUSH (19:54)
[2020-03-14] VITALS: BP 139/86; PULSE 73; PULSE 75; RESP 18; TEMP 36.6; O2SAT 93
[2020-03-14] MEDS: LACTATED RINGERS 1,000 ML 200 ML IV CONT ×5 (01:18→21:12)
[2020-03-14] MEDS: LORAZEPAM INJ 2 MG/ML VIAL 0.5 MG IV PUSH ×2 (02:39→10:55)
[2020-03-14 04:00] VITALS: PULSE 78
[2020-03-14 06:00] LABS: Hematocrit 37.8 % (35.0-49.0); Hemoglobin 12.2 g/dL (12.0-15.0); Mean Corpuscular HGB Conc 32.3 g/dL (32.0-36.0); Mean Corpuscular Hemoglobin 28.8 pg (27.0-31.0); Mean Corpuscular Volume 89.4 fL (78.0-102.0); Mean Platelet Volume 10.8 fl (9.2-11.8); Platelet Count Result 217 K/mm3 (150-420); Red Blood Count 4.23 M/mm3 (4.20-5.40); Red Cell Distribution Width 13.6 % (11.6-14.4); White Blood Count 8.2 K/mm3 (4.8-10.8)
[2020-03-14] MEDS: ALBUTEROL SULFATE (*SP) INHALER 2 PUFF INHALATION ×4 (06:07→21:14)
[2020-03-14 06:42] LABS: Albumin Level 2.7 g/dL (3.4-5.0); Bilirubin,Total 0.3 mg/dL (0.00-1.00); Blood Urea Nitrogen 6 mg/dL (7-18); Calcium 8.3 mg/dL (8.5-10.1); Estimated CRCL calculation 61 ml/min; Estimated Glomerular Filt Rate > 60; Glucose 77 mg/dL (70-99)
[2020-03-14 06:56] LABS: Alanine Aminotransferase 25 U/L (14-59); Alkaline Phosphatase 129 U/L (46-116); Anion Gap 12.8 mmol/L (7-16); Aspartate Amino Transferase 24 U/L (15-37); Carbon Dioxide 29 mmol/L (21-32); Chloride 105 mmol/L (98-108); Osmolality Calculated 292 mOsm/kg (285-295); Potassium 3.8 mmol/L (3.5-5.1); Sodium 143 mmol/L (136-145)
[2020-03-14 07:20] LABS: Lipase 3907 U/L (73-393)
[2020-03-14 08:00] VITALS: BP 145/77; PULSE 74; PULSE 78; RESP 18; TEMP 36.8; O2SAT 20
[2020-03-14] MEDS: buPROPion HCL XL (24 HR) 150 MG TABCR 300 MG PO (08:42)
[2020-03-14] MEDS: FLUOXETINE HCL 10 MG CAPSULE 40 MG PO (08:42)
[2020-03-14] MEDS: ENOXAPARIN 40 MG/0.4 ML SYRINGE SUB-Q (08:42)
[2020-03-14] MEDS: LORATADINE 10 MG TABLET PO (08:43)
[2020-03-14] MEDS: NICOTINE (*PBKC) 14 MG PATCH 1 PATCH TRANSDERM (08:43)
[2020-03-14] MEDS: LIDOCAINE 5% PATCH 2 PATCH TRANSDERM (08:44)
--- NOTE | 2020-03-14 11:03 | PM.IMPN ---
Progress Note: A&P Assessment and Plan (1) Acute pancreatitis: Qualifiers: Acute pancreatitis complication: no infection or necrosis Pancreatitis type: unspecified pancreatitis type Qualified Code(s): K85.90 - Acute pancreatitis without necrosis or infection, unspecified Code(s): K85.90 - Acute pancreatitis without necrosis or infection, unspecified Status: Acute Assessment and Plan: completed the dextrose IV fluids and converted to LR continuous IV fluids at 200 mL an hour patient's lipase level was over 10,000 admission then 8060 late yesterday afternoon, then 3907this morning (all while remaining NPO). tolerated clear and full liquid meal for lunch today reporting pain 1-2/10 with actiivity now. Repeating a lipase level now to see where her trend is going this afternoon to see if we can advance to Low Fat Diet for dinner. continue the Pepcid and Protonix and carafate. ordered IV Benadryl and IV Reglan in efforts to improve her headache and her epigastric pain ordered oral Tylenol or IV Tylenol p.r.n. as another pain relief option ordered low-dose fentanyl patch p.r.n. for pain relief since the patient has codeine allergies as well as appears to not do well with Dilaudid IV either today. after discharge she should follow-up with GI for an EGD and a colonoscopy I have encouraged her to stop using marijuana, stop using alcohol, and improve her diet. US of abdomen results discussed above (2) Dyslipidemia: Code(s): E78.5 - Hyperlipidemia, unspecified Status: Acute Assessment and Plan: There is no record of her lipid panel in our blood work, but since her primary care doctor already started her on atorvastatin I will not order another lipid panel this time. Since the atorvastatin is her most recent new med, and we know there is troubles with statins for some people, I will order CK-MB levels just to confirm no issues with that. Continue holding her atorvastatin from home dose. restart statin at discharge. Found A1c level to be 6.1 (3) COPD (chronic obstructive pulmonary disease): Code(s): J44.9 - Chronic obstructive pulmonary disease, unspecified Status: Acute Assessment and Plan: CONTROLLED at this time. Her chest x-ray showed bibasilar infiltrates, atelectasis versus pneumonia she has had no fevers, her white count is 8.4, no cough and no wheezing per auscultation, no sputum production ordered albuterol inhaler ordered incentive spirometer Q hour use getting a CT angio PE protocol due to her elevated D-dimer as well as these chest x-ray results and her persistent chest/epigastric pain (4) Head ache: Code(s): R51 - Headache Status: Acute Assessment and Plan: RESOLVED with current pain regime. treating with IV Reglan and IV Benadryl tried using oral and IV Tylenol tried using IV Dilaudid fentanyl patch low-dose p.r.n. order remains in case her pain is still uncontrolled would recommend head CT and carotid ultrasound Dopplers in the morning if no resolution ordered neuro checks Q shift (5) Elevated d-dimer: Code(s): R79.89 - Other specified abnormal findings of blood chemistry Status: Acute Assessment and Plan: IMPROVED, PE ruled out. her D-dimer at admission was 1.21 her D-dimer yesterday was 1.08 following continuous IV fluids ordered a CT angio PE protocol of chest abdomen pelvis today she continues to have complaints of pain ranging from 5/10 to 10/10 located in her chest lower mid chest, epigastric area , despite appearing comfortable when walking in the room or when resting in her bed. Continue IV fluids at 200 mils an hour her urinalysis showed blood 2+, rbc's 11-20 high she was started on Lovenox at admission, and that SQ dose will be continued she has no evidence of a DVT in her lower or upper extremities, no swelling, no pain, no redness placed her on telemetry continuous monitoring due to D-dim
[2020-03-14 12:00] VITALS: BP 149/73; PULSE 77; PULSE 78; RESP 14; TEMP 36.7; O2SAT 93
[2020-03-14] MEDS: ONDANSETRON INJ 4 MG/2 ML VIAL IV PUSH (13:00)
[2020-03-14] MEDS: ACETAMINOPHEN 500 MG TABLET 1000 MG PO (13:01)
[2020-03-14 16:00] VITALS: BP 120/84; PULSE 60; PULSE 67; RESP 18; TEMP 36.5; O2SAT 94
[2020-03-14 16:57] LABS: Lipase 4261 U/L (73-393)
[2020-03-14 17:17] LABS: Magnesium 1.7 mg/dL (1.8-2.4)
[2020-03-14] MEDS: MAGNESIUM SULF 2 GM/WATER 50ML 2 GM/50 ML BAG IVPB (18:37)
[2020-03-14 20:00] VITALS: PULSE 78
--- NOTE | 2020-03-14 21:20 | PC.NURSE ---
Patient observed lying curled up and crying in pain rated 10/10. She states that she is having pain feels that starts in her upper back and radiates around to upper abdomen. She describes the pain as squeezing. She denies nausea but states that the pain does make her feel nauseous at times. She states that the pain worsened after dinner. She had scheduled PO Tylenol but refused it stating that the Tylenol has not helped the abdominal pain and that she did not want to take any thing by mouth at this time due to the pain. Patient was given PRN Reglan and Ativan. Patient also expressed that she really did not want to take anymore Ativan because she has a history of dependency on Xanax and Cocaine from about 15 years ago. Patient also asking if IV fluids could be stopped since she can not rest because she is having to void so often through the night. Charge nurse was notified.
[2020-03-14] MEDS: METOCLOPRAMIDE HCL INJ 10 MG/2 ML VIAL IV PUSH (21:25)
--- NOTE | 2020-03-14 23:27 | PM.EVENT ---
Event Note Event Note Event Note: Patient states she feels better today but still has intermittent pain. Has been taking oral medications. Alert oriented, mild acute distress. Mucous membranes moist. Extremities warm dry and pink. Regular rate and rhythm without murmur rub or gallop. Lungs a cut to auscultation bilaterally. Mild epigastric tenderness without guarding, rebound or distention. No edema. Continue progressing to p.o. and monitor for a vomiting. Continue pain control measures with an eye toward transitioning to oral pain medication. I have examined the patient and reviewed the chart. Discussed the patient's care with A Lavon CHAPMAN and agree with her assessment and plan.
[2020-03-15] VITALS: BP 155/107; PULSE 78; PULSE 84; RESP 18; TEMP 36.7; O2SAT 92
--- NOTE | 2020-03-15 00:22 | PC.NURSE ---
Continuous LR Discontinued at 0020.
--- NOTE | 2020-03-15 00:25 | PC.NURSE ---
0808 Dr. jain notified of pt's c/o abdominal pain and discomfort. Orders received and noted.
[2020-03-15] MEDS: ONDANSETRON INJ 4 MG/2 ML VIAL IV PUSH (00:35)
[2020-03-15 04:00] VITALS: PULSE 72
[2020-03-15] MEDS: ACETAMINOPHEN 500 MG TABLET 1000 MG PO (06:20)
[2020-03-15] MEDS: ALBUTEROL SULFATE (*SP) INHALER 2 PUFF INHALATION ×2 (06:20→10:26)
[2020-03-15 06:54] LABS: Lipase 2749 U/L (73-393)
[2020-03-15 08:00] VITALS: BP 153/89; PULSE 72; PULSE 76; RESP 16; TEMP 37; O2SAT 98
[2020-03-15] MEDS: LIDOCAINE 5% PATCH 2 PATCH TRANSDERM (08:34)
[2020-03-15] MEDS: FLUOXETINE HCL 10 MG CAPSULE 40 MG PO (08:35)
[2020-03-15] MEDS: ENOXAPARIN 40 MG/0.4 ML SYRINGE SUB-Q (08:35)
[2020-03-15] MEDS: NICOTINE (*PBKC) 14 MG PATCH 1 PATCH TRANSDERM (08:36)
[2020-03-15] MEDS: buPROPion HCL XL (24 HR) 150 MG TABCR 300 MG PO (08:36)
[2020-03-15] MEDS: LORATADINE 10 MG TABLET PO (08:36)
[2020-03-15 11:27] VITALS: PULSE 73
--- NOTE | 2020-03-15 12:07 | P.DS_ITS ---
DS: Diagnosis Admitting Diagnosis Admitting Diagnosis: Acute pancreatitis without necrosis or infection, unspecified <ANA Pritchett - Last Filed: 03/15/20 16:35> Discharge Diagnosis (1) Acute pancreatitis: Qualifiers: Acute pancreatitis complication: no infection or necrosis Pancreatitis type: unspecified pancreatitis type Qualified Code(s): K85.90 - Acute pancreatitis without necrosis or infection, unspecified <Tee Hicks ANA - Last Filed: 03/15/20 16:35> Code(s): K85.90 - Acute pancreatitis without necrosis or infection, unspecified <VALDEZ PritchettC - Last Filed: 03/15/20 16:35> Status: Acute <ANA Pritchett - Last Filed: 03/15/20 16:35> Assessment and Plan: * resolved * patient's lipase level was over 10,000 admission today or date discharges 94367 * patient able to tolerate meals * recommended follow-up with GI doctor * patient educated on preventive measures from pancreatitis * after sound unremarkable * CTA indicates pancreatitis <Tee Hicks ANA - Last Filed: 03/15/20 16:35> (2) Dyslipidemia: Code(s): E78.5 - Hyperlipidemia, unspecified <Tee Hicks ANA - Last Filed: 03/15/20 16:35> Status: Acute <Tee Hicks ANA - Last Filed: 03/15/20 16:35> Assessment and Plan: * continue statins and follow-up with PCP <Tee BennettBee Kurt HEROLawson - Last Filed: 03/15/20 16:35> (3) COPD (chronic obstructive pulmonary disease): Code(s): J44.9 - Chronic obstructive pulmonary disease, unspecified <Tee Hicks VALDEZC - Last Filed: 03/15/20 16:35> Status: Acute <Tee Hicks ANA - Last Filed: 03/15/20 16:35> Assessment and Plan: * CONTROLLED * Her chest x-ray showed Impression: 1: Subtle bibasilar infiltrates may represent atelectasis, developing pneumonia or less likely edema. * she has had no fevers, her white count is 8.2, no cough and no wheezing per auscultation, no sputum production * preliminary blood culture reading with no growth <ANA Pritchett - Last Filed: 03/15/20 16:35> (4) Head ache: Code(s): R51 - Headache <ANA Pritchett - Last Filed: 03/15/20 16:35> Status: Acute <ANA Pritchett - Last Filed: 03/15/20 16:35> Assessment and Plan: * RESOLVED * possibly secondary to nicotine or caffeine withdrawals <ANA Pritchett - Last Filed: 03/15/20 16:35> (5) Elevated d-dimer: Code(s): R79.89 - Other specified abnormal findings of blood chemistry <ANA Pritchett - Last Filed: 03/15/20 16:35> Status: Acute <ANA Pritchett - Last Filed: 03/15/20 16:35> Assessment and Plan: * IMPROVED, PE ruled out possibly secondary to inflammation * CTA indicates pancreatitis <ANA Pritchett - Last Filed: 03/15/20 16:35> DS: Summary Hospital Course Hospital Course: Admission H&P 03/12/2020Narrative: Lisette Moreau is a 59 year old female admitted with chest pain, lower substernal chest pain that started on March 10 ( the day before she came in to the ED) that was originally intermittent pain and became more constant pain. She felt the pain was like pressure and that it is similar to when she had gallbladder problems. She has been nauseous and lightheaded with the pain but has had no sweats, vomiting, syncope, or palpitations. She states that she has pain in her neck at present and earlier she had pain in her left shoulder. At present the pain i
--- NOTE | 2020-03-15 12:07 | PM.DS ---
DS: Diagnosis Admitting Diagnosis Admitting Diagnosis: Acute pancreatitis without necrosis or infection, unspecified <Tee HicksANA - Last Filed: 03/15/20 16:35> Discharge Diagnosis (1) Acute pancreatitis: Qualifiers: Acute pancreatitis complication: no infection or necrosis Pancreatitis type: unspecified pancreatitis type Qualified Code(s): K85.90 - Acute pancreatitis without necrosis or infection, unspecified <Tee HicksANA - Last Filed: 03/15/20 16:35> Code(s): K85.90 - Acute pancreatitis without necrosis or infection, unspecified <Tee HicksANA - Last Filed: 03/15/20 16:35> Status: Acute <Tee HicksANA - Last Filed: 03/15/20 16:35> Assessment and Plan: resolved patient's lipase level was over 10,000 admission today or date discharges [id number] patient able to tolerate meals recommended follow-up with GI doctor patient educated on preventive measures from pancreatitis after sound unremarkable CTA indicates pancreatitis <Tee BennettANA Cardenas - Last Filed: 03/15/20 16:35> (2) Dyslipidemia: Code(s): E78.5 - Hyperlipidemia, unspecified <Tee BennettBee KurtANA - Last Filed: 03/15/20 16:35> Status: Acute <Tee HicksANA - Last Filed: 03/15/20 16:35> Assessment and Plan: continue statins and follow-up with PCP <ANA Pritchett - Last Filed: 03/15/20 16:35> (3) COPD (chronic obstructive pulmonary disease): Code(s): J44.9 - Chronic obstructive pulmonary disease, unspecified <Tee BennettBee KurtANA - Last Filed: 03/15/20 16:35> Status: Acute <Tee HicksANA - Last Filed: 03/15/20 16:35> Assessment and Plan: CONTROLLED Her chest x-ray showed Impression: 1: Subtle bibasilar infiltrates may represent atelectasis, developing pneumonia or less likely edema. she has had no fevers, her white count is 8.2, no cough and no wheezing per auscultation, no sputum production preliminary blood culture reading with no growth <ANA Pritchett - Last Filed: 03/15/20 16:35> (4) Head ache: Code(s): R51 - Headache <ANA Pritchett - Last Filed: 03/15/20 16:35> Status: Acute <ANA Pritchett - Last Filed: 03/15/20 16:35> Assessment and Plan: RESOLVED possibly secondary to nicotine or caffeine withdrawals <ANA Pritchett - Last Filed: 03/15/20 16:35> (5) Elevated d-dimer: Code(s): R79.89 - Other specified abnormal findings of blood chemistry <ANA Pritchett - Last Filed: 03/15/20 16:35> Status: Acute <ANA Pritchett - Last Filed: 03/15/20 16:35> Assessment and Plan: IMPROVED, PE ruled out possibly secondary to inflammation CTA indicates pancreatitis <ANA Pritchett - Last Filed: 03/15/20 16:35> DS: Summary Hospital Course Hospital Course: Admission H&P 03/12/2020Narrative: Lisette Moreau is a 59 year old female admitted with chest pain, lower substernal chest pain that started on March 10 ( the day before she came in to the ED) that was originally intermittent pain and became more constant pain. She felt the pain was like pressure and that it is similar to when she had gallbladder problems. She has been nauseous and lightheaded with the pain but has had no sweats, vomiting, syncope, or palpitations. She states that she has pain in her neck at present and earlier she had pain in her left shoulder. At present the pain is like a band around her lower chest and goes through to her back. She states that she has chronic cough, shortness of breath and sore throat but those are unchanged.. She denies sputum production, cold symptoms, sick exposures, or travel. When asked about any exposure to the COVID virus or anyone that could have had a fever or was coughing, she st
--- NOTE | 2020-03-15 19:07 | PM.EVENT ---
Event Note Event Note Event Note: Admitted with abdominal pain secondary to pancreatitis. Denies pain today. Able to eat and ambulate without difficulty. O) VSS NAD sitting on side of bed. Appears comfortable. Minor epigastric tenderness. No obvious trigger of 1st pancreatitis episode. Discussed with Tee Hicks, agree with documentation and plan.
== END 2020-03-15 13:50 | disposition home or self-care (01) | DRG 440 ==
LOC: CHSED 20:17 → CHS2ND 22:29
PROVIDERS: Nurse Practitioner; Admitting Provider Emergency Medicine; Emergency Provider Emergency Medicine; PCP Internal Medicine; Visit Provider Family Medicine
DX: K85.90 Acute pancreatitis without necrosis or infection, unspecified (principal); E78.5 Hyperlipidemia, unspecified; J44.9 Chronic obstructive pulmonary disease, unspecified; R51 Headache; F12.90 Cannabis use, unspecified, uncomplicated
CPT/HCPCS: 36415; 71045; 71275; 74177; 76705; 80053; 80307; 81001; 82550; 82553; 83036; 83690; 83735; 83880; 84100; 84484; 85025; 85027; 85380; 85610; 85730; 87040; 87086; 93005; 96361; 96365; 96366; 96367; 96372; 96375; 96376; 99285; A9270; C9113; G0378; J0131; J1170; J1200; J1650; J2060; J2405; J2765; J3475; J3480; J7030; J7120; Q9965

== ENCOUNTER 2020-05-31 10:16 | Outpatient (CLI) | payer BC, SELFPAY ==
[2020-05-31 10:28] LABS: Basophils Absolute Auto 0.06 K/mm3 (0.00-0.10); Basophils Percent Auto 0.6 % (0.0-1.0); Eosinophils Absolute Auto 0.21 K/mm3 (0.02-0.50); Eosinophils Percent Auto 2.3 % (1.0-6.0); Hematocrit 43.6 % (35.0-49.0); Hemoglobin 14.3 g/dL (12.0-15.0); Immature Granulocyte Absolute 0.02 K/mm3 (0.00-0.00); Immature Granulocyte Percent A 0.2 % (0.0-0.0); Lymphocytes Percent Auto 21.6 % (18.0-42.0); Mean Corpuscular HGB Conc 32.8 g/dL (32.0-36.0); Mean Corpuscular Hemoglobin 29.3 pg (27.0-31.0); Mean Corpuscular Volume 89.3 fL (78.0-102.0); Mean Platelet Volume 10.4 fl (9.2-11.8); Monocytes Absolute Auto 0.41 K/mm3 (0.10-0.90); Monocytes Percent Auto 4.4 % (2.0-11.0); Neutrophils Absolute Auto 6.6 K/mm3 (1.7-7.2); Neutrophils Percent Auto 70.9 % (50.0-70.0); Platelet Count Result 248 K/mm3 (150-420); Red Blood Count 4.88 M/mm3 (4.20-5.40); White Blood Count 9.3 K/mm3 (4.8-10.8)
[2020-05-31 10:45] LABS: Alanine Aminotransferase 34 U/L (14-59); Albumin Level 3.3 g/dL (3.4-5.0); Alkaline Phosphatase 157 U/L (46-116); Amylase 61 U/L (25-115); Anion Gap 14.8 mmol/L (7-16); Aspartate Amino Transferase 22 U/L (15-37); Bilirubin,Total 0.4 mg/dL (0.00-1.00); Blood Urea Nitrogen 15 mg/dL (7-18); Carbon Dioxide 26 mmol/L (21-32); Chloride 104 mmol/L (98-108); Estimated Glomerular Filt Rate 40; Glucose 134 mg/dL (70-99); Lipase 232 U/L (73-393); Osmolality Calculated 294 mOsm/kg (285-295); Potassium 3.8 mmol/L (3.5-5.1); Sodium 141 mmol/L (136-145); Total Protein 7.7 g/dL (6.4-8.2)
== END 2020-05-31 10:17 | disposition home or self-care (01) ==
LOC: CHSLAB 10:18
PROVIDERS: PCP Internal Medicine; Visit Provider Internal Medicine
DX: R10.11 Right upper quadrant pain (principal)
CPT/HCPCS: 36415; 80053; 82150; 83690; 85025

== ENCOUNTER 2020-05-31 11:32 | Emergency (ER) | payer BC, SELFPAY ==
--- NOTE | ~2020-05-31 | CT_ITS ---
EXAMINATION: CT abdomen pelvis w con EXAM DATE: 05/31/2020 12:47 INDICATION: Epigastric pain. Left flank pain. Nausea. History pancreatitis. TECHNIQUE: Spiral CT of the abdomen and pelvis was performed following intravenous injection of 100 m L Omnipaque 350. Axial, coronal and sagittal images were reviewed. The dose-length product (DLP) fo r this examination was 582.93 mGy-cm. The exposure was tailored according to patient size (auto mA e xposure control), and iterative reconstruction (ASIR) was used as additional dose reduction technique . Comparison is made to prior examination from 03/11/2020. FINDINGS: The liver, spleen, adrenal glands and pancreas are unremarkable. There are cholecystectomy clips. Portal and splenic veins are patent. Kidneys enhance symmetrically. There is no hydronephr osis. There are several right renal cysts up to 1.7 cm in size. The uterus is anteverted and morphol ogically normal. The bladder is unremarkable. There is no retroperitoneal or pelvic lymphadenopath y. The appendix is not positively visualized. There is no pericecal inflammatory change to suggest appe ndicitis. The stomach and small bowel are unremarkable. There is moderate amount of colonic stool. There is mild scattered colonic diverticulosis. There is no adjacent inflammatory change to suggest diverticulitis. No free intraperitoneal gas. The heart is normal in size. There are no pericardi al or pleural effusions. Mild basilar pulmonary fibrosis. There are no osteoblastic or osteolytic l esions identified. IMPRESSION: 1. No acute intra-abdominal findings. Unremarkable pancreas. 2. Mild colonic diverticulosis. 3. Mild pulmonary fibrosis. Reviewed, dictated and finalized at location A.
[2020-05-31 11:40] VITALS: BP 124/74; PULSE 73; RESP 22; TEMP 36.8; O2SAT 98
--- NOTE | 2020-05-31 11:41 | ECG_ITS ---
Measurements Intervals [place] Rate: 65 P: 57 MD: 157 QRS: 1 QRSD: 85 T: 30 QT: 409 QTc: 428 Interpretive Statements SINUS RHYTHM DELAYED PRECORDIAL R/S TRANSITION BORDERLINE ST ABNORMALITY- LATERAL LEADS BASELINE ARTIFACT- I, II, III, AVF BORDERLINE ECG Electronically Signed On 05-31-2020 14:42:42 CDT by Odilon Guevara D.O.
--- NOTE | 2020-05-31 12:16 | ED.ABDPAIN ---
HPI - Abdominal Pain General Chief Complaint: Abdominal Pain Stated Complaint: dr sent to er Source: patient Mode of arrival: ambulatory Limitations: no limitations History of Present Illness HPI narrative: Pt states that about a month ago she had pancreatits. She ended up getting transffered to [facility] and had a sent proceedure. She had been feeling pretty good unitl last few days. SHe began to have pain in her epigastrum similar to the pain she had when she was hospitalized. Pt has not had fever, but has had pain radiating to her back. Her left arm hurt for about 30 min yesterday. No left arm pain today. She had blood work done today and saw her PCP but they sent her to ED for more complete workup. Pt now has reproducible pain in epigstrum. MD elicited complaint: abdominal pain Pertinent past history: other (pancreatitis) Onset (ago): day(s) Pain Consistency: constant Location: [facility] Severity: moderate Quality: aching and sharp Radiation: back and other (for about 30 min pain was in left arm. This has been about 20 hours TEST BORER) Migration to: no migration Exacerbating factors: nothing Relieving factors: nothing Associated symptoms: nausea Related Data Patient : No Home Medications Medication Instructions Recorded Confirmed bupropion HCl 300 mg PO DAILY 01/25/20 05/31/20 fluoxetine 40 mg PO DAILY 01/25/20 05/31/20 atorvastatin 20 mg PO HS 03/11/20 05/31/20 ergocalciferol (vitamin D2) 50,000 unit PO WEEKLY 03/11/20 05/31/20 [Vitamin D2] Allergies Allergy/AdvReac Type Severity Reaction Status Date / Time codeine AdvReac Nightmare Verified 03/11/20 20:30 Review of Systems Review of Systems: All systems reviewed & are unremarkable except as noted in HPI and below Constitutional: Constitutional: Reports no additional constitutional complaints Eyes: Eyes: Reports no additional eye complaints ENT: Reports system reviewed and no additional complaints, except as documented Cardiovascular: Cardiovascular: Reports no additional cardiovascular complaints Respiratory: Respiratory: Reports no additional respiratory complaints Gastrointestinal: Gastrointestinal: Reports abdominal pain, Denies bloating, Reports constipation, Denies heartburn, Denies diarrhea, Reports nausea and Denies vomiting Genitourinary: Genitourinary: Reports no additional female genitourinary complaints Musculoskeletal: Musculoskeletal: Reports no additional musculoskeletal complaints Integumentary/Breasts: Skin/Breast: Reports system reviewed and no additional complaints, except as docu Neurologic: Reports system reviewed and no additional complaints, except as documented Psychiatric: Psychiatric: Reports no additional psychiatric complaints Endocrine: Endocrine: Reports no additional endocrine complaints Hematologic/Lymphatic: Hematologic/Lymphatic: Reports no additional hematologic/lymphatic complaints Allergic/Immunologic: Allergic/Immunologic: Reports no additional allergic/immunologic complaints PMFSH Past Medical History Medical History (Updated 05/31/20 @ 14:18 by Vicki Daily MD) COPD (chronic obstructive pulmonary disease) Depression Dyslipidemia Pancreatitis Surgical History Surgical History History of S/P cholecystectomy Social History Social History Smoking packs per day: 10 Smoking cigarettes per day: 200.0 Years smoked: 46 Smoking pack-years: 460.00 Smoking status: Current every day smoker Tobacco type: cigarettes Second hand tobacco smoke exposure: Yes Alcohol intake: never Substance use: former Substance use type: crack/cocaine Last use: 15 yrs ago Gender identity (if verbalized by the patient): Female Spiritual care concerns: No Agree to blood products: Yes Exam Const: General: no acute distress and alert Orientation/consciousn
[2020-05-31 12:48] LABS: Prothrombin Time 10.4 Seconds (9.64-11.0)
[2020-05-31 12:51] LABS: D Dimer 0.81 mg/L (0.19-0.50)
[2020-05-31 12:53] LABS: Troponin I < 0.02 ng/mL (0.00-0.056)
[2020-05-31 13:00] LABS: Appearance Urine Sl Cloudy (Clear); Bilirubin Urine Negative (Negative); Color Urine Yellow (Yellow); Glucose Urine UA Negative (Negative); Ketones Urine Negative (Negative); Leukocyte Esterase Ur Trace LEU/UL (Negative); Nitrate Urine Negative (Negative); Protein Urine Negative (Negative); Urobilinogen Urine 0.2 mg/dL (0.2-1.0); pH Urine 7.5 (5.0-8.0)
[2020-05-31 13:04] LABS: Add Urine Microscopic? YES; Bacteria Urine Trace /hpf; Blood Urine Trace-Intact (Negative); RBC Urine 0-2 /hpf (0-2); Squamous Epithelial Cell Urine Moderate /hpf (Few); WBC Urine 0-3 /hpf (0-3)
[2020-05-31 13:40] VITALS: BP 134/94; PULSE 61; O2SAT 96
[2020-05-31 14:41] VITALS: BP 145/93; PULSE 59; O2SAT 96
== END 2020-05-31 14:43 | disposition home or self-care (01) ==
PROVIDERS: Emergency Provider Emergency Medicine; PCP Internal Medicine
DX: R10.9 Unspecified abdominal pain (principal)
CPT/HCPCS: 36415; 74177; 81001; 84484; 85380; 85610; 93005; 99283; 99284; Q9965

== ENCOUNTER 2020-09-26 12:48 | Outpatient (CLI) | payer BC, SELFPAY ==
[2020-09-27 19:47] LABS: SARS-CoV-2 RNA PCR Negative
== END 2020-09-26 12:49 | disposition home or self-care (01) ==
PROVIDERS: PCP Internal Medicine; Visit Provider Internal Medicine
DX: Z20.828 Contact with and (suspected) exposure to other viral communicable diseases (principal)
CPT/HCPCS: 87635; C9803; U0003

== ENCOUNTER 2020-12-04 04:44 | Emergency (ER) | payer BC, SELFPAY ==
--- NOTE | ~2020-12-04 | XR_ITS ---
EXAMINATION: XR chest 1V portable INDICATION: Chest pain TECHNIQUE: Portable AP chest at 0525 hours COMPARISON: 03/11/2020 FINDINGS: There are airspace opacities of the mid and lower lung zones. There is no pleural effusion or pneumothorax. The cardiomediastinal silhouette is normal for technique. IMPRESSION: 1. Airspace opacities of the mid and lower lung zones, consistent with atelectasis versus pneumonia. Reviewed, dictated and finalized at location A. OGRAPHIC ENGINEER IMPRESSION: 1. Airspace opacities of the mid and lower lung zones, consistent with atelecta sis versus pneumonia.
--- NOTE | ~2020-12-04 | CT_ITS ---
EXAMINATION: CTA chest PE protocol DATE: 12/04/2020 07:05 INDICATION: Chest pain TECHNIQUE: Computed tomography angiography (CTA) of the chest was performed with 100 mL Omnipaque-350 intravenous contrast timed to evaluate the pulmonary arteries. Coronal maximum intensity projection 3D-reconstructions were created by the technologist. The dose-length product (DLP) was 385.53 mGy-cm. Automated exposure control and iterative reconstruction technique were employed. COMPARISON: 03/12/2020 FINDINGS: The pulmonary arteries are poorly opacified. Respiratory motion artifact also limits the ex amination. No central pulmonary embolism is identified. There is moderate emphysema. Dependent atelec tasis is noted. There are airspace opacities in the lower lobes and lingula. The heart size is normal . There is chronic mild mediastinal and right hilar lymphadenopathy, likely reactive. No pleural effu kristy or pneumothorax is identified. There is mild thoracic spondylosis. The gallbladder is surgically absent. Pneumobilia is noted. IMPRESSION: 1. No central pulmonary embolism identified, sensitivity limited by respiratory motion and poor opaci fication of the pulmonary arteries. 2. Airspace opacities of the lower lobes and lingula, consistent with pneumonia. Reviewed, dictated and finalized at location A. SQL PROGRAMMER IMPRESSION: 1. No central pulmonary embolism identified, sensitivity limited by respiratory motion and poor opacification of the pulmonary arteries. 2. Airspace opacities of the lower lobes and lingula, consistent with pneumonia .
[2020-12-04 04:44] VITALS: BP 146/11; PULSE 85; RESP 20; TEMP 36.6; O2SAT 96
--- NOTE | 2020-12-04 05:03 | ECG_ITS ---
Measurements Intervals [place] Rate: 76 P: 39 ID: [id number] QRS: -16 QRSD: 85 T: 16 QT: 389 QTc: 439 Interpretive Statements SINUS RHYTHM DELAYED PRECORDIAL R/S TRANSITION VOLTAGE CRITERIA FOR LVH BASELINE ARTIFACT- II, III, AVR, AVL, AVF, V1-V6 BORDERLINE ECG Electronically Signed On 12-05-2020 7:18:31 COMPUTER HELP DESK SPECIALIST by Odilon Guevara D.O.
--- NOTE | 2020-12-04 05:11 | ED.CHESTPAIN ---
HPI - Chest Pain General Chief Complaint: Chest Pain Stated Complaint: CHEST PAIN Time Seen by Provider: 12/04/20 04:55 Source: patient Mode of arrival: ambulatory Limitations: no limitations History of Present Illness HPI narrative: Patient comes in after being woken out of sleep with chest pain in left chest, also with mild dyspnea. This is moderately severe and has not let up since it started. This is associated with some mild shortness of breath. MD complaint: chest pain Onset (ago): minute(s) (30) Timing of current episode: constant Onset: during rest Pain location: left chest Pain radiation: left arm Severity: moderate Quality: heaviness Related Data Home Medications Medication Instructions Recorded Confirmed bupropion HCl 300 mg PO DAILY 01/25/20 05/31/20 fluoxetine 40 mg PO DAILY 01/25/20 05/31/20 atorvastatin 20 mg PO HS 03/11/20 05/31/20 ergocalciferol (vitamin D2) 50,000 unit PO WEEKLY 03/11/20 05/31/20 [Vitamin D2] Allergies Allergy/AdvReac Type Severity Reaction Status Date / Time codeine AdvReac Nightmare Verified 03/11/20 20:30 Review of Systems Constitutional: Constitutional: Reports no additional constitutional complaints Eyes: Eyes: Reports no additional eye complaints ENT: Reports system reviewed and no additional complaints, except as documented Cardiovascular: Cardiovascular: Reports no additional cardiovascular complaints Respiratory: Respiratory: Reports no additional respiratory complaints Gastrointestinal: Gastrointestinal: Reports no additional gastrointestinal complaints Genitourinary: Genitourinary: Reports no additional female genitourinary complaints Musculoskeletal: Musculoskeletal: Reports no additional musculoskeletal complaints Integumentary/Breasts: Skin/Breast: Reports system reviewed and no additional complaints, except as docu Neurologic: Reports system reviewed and no additional complaints, except as documented Psychiatric: Psychiatric: Reports no additional psychiatric complaints Endocrine: Endocrine: Reports no additional endocrine complaints Hematologic/Lymphatic: Hematologic/Lymphatic: Reports no additional hematologic/lymphatic complaints Allergic/Immunologic: Allergic/Immunologic: Reports no additional allergic/immunologic complaints [facility] Past Medical History Medical History COPD (chronic obstructive pulmonary disease) Depression Dyslipidemia Pancreatitis Surgical History Surgical History History of S/P cholecystectomy Social History Social History Smoking packs per day: 10 Smoking cigarettes per day: 200.0 Years smoked: 46 Smoking pack-years: 460.00 Smoking status: Current every day smoker Tobacco type: cigarettes Second hand tobacco smoke exposure: Yes Alcohol intake: never Substance use: former Substance use type: crack/cocaine Last use: 15 yrs ago Gender identity (if verbalized by the patient): Female Spiritual care concerns: No Agree to blood products: Yes Exam Const: General: cooperative and healthy appearing Nutritional Appearance: average body habitus Orientation/consciousness: oriented to person Limitations: no limitations HENMT: Head: normal to inspection Ears: hearing grossly normal bilaterally General nose exam: Normal external nose present Face and sinus: normal facial exam Mouth: Yes Normal oral and palatal mucosa present Throat: posterior oropharynx normal Eyes: General: appearance normal, both eyes and all related structures Conjunctivae: conjunctivae normal Sclera: sclerae normal EOM: EOMs intact bilaterally Neck: Neck: normal visual inspection Lymphatic: no lymphadenopathy noted Chest: Chest palpation & inspection: normal inspection of the chest Breast/axilla inspection: normal inspection of the breasts Resp: Effort
[2020-12-04 05:28] LABS: Basophils Absolute Auto 0.08 K/mm3 (0.00-0.10); Basophils Percent Auto 0.6 % (0.0-1.0); Eosinophils Absolute Auto 0.25 K/mm3 (0.02-0.50); Eosinophils Percent Auto 1.9 % (1.0-6.0); Immature Granulocyte Absolute 0.04 K/mm3 (0.00-0.00); Immature Granulocyte Percent A 0.3 % (0.0-0.0); Lymphocytes Percent Auto 17.6 % (18.0-42.0); Mean Corpuscular HGB Conc 31.8 g/dL (32.0-36.0); Mean Corpuscular Volume 91.1 fL (78.0-102.0); Mean Platelet Volume 11.4 fl (9.2-11.8); Monocytes Absolute Auto 0.83 K/mm3 (0.10-0.90); Monocytes Percent Auto 6.3 % (2.0-11.0); Neutrophils Absolute Auto 9.6 K/mm3 (1.7-7.2); Neutrophils Percent Auto 73.3 % (50.0-70.0); Platelet Count Result 270 K/mm3 (150-420); Red Blood Count 4.83 M/mm3 (4.20-5.40); Red Cell Distribution Width 13.6 % (11.6-14.4); White Blood Count 13.1 K/mm3 (4.8-10.8)
[2020-12-04 05:39] LABS: Alanine Aminotransferase 22 U/L (14-59); Albumin Level 3.2 g/dL (3.4-5.0); Alkaline Phosphatase 145 U/L (46-116); Anion Gap 10 mmol/L (8-16); Aspartate Amino Transferase 20 U/L (15-37); Bilirubin,Total 0.2 mg/dL (0.00-1.00); Blood Urea Nitrogen 21 mg/dL (7-18); Calcium 8.7 mg/dL (8.5-10.1); Carbon Dioxide 26 mmol/L (21-32); Chloride 105 mmol/L (98-108); Estimated Glomerular Filt Rate 38; Glucose 103 mg/dL (70-99); Osmolality Calculated 295 mOsm/kg (285-295); Potassium 3.8 mmol/L (3.5-5.1); Sodium 141 mmol/L (136-145); Total Protein 7.7 g/dL (6.4-8.2); Troponin I 8.6 ng/L (0.00-60.4)
[2020-12-04 05:48] LABS: BNP 44.5 pg/mL (0-100)
[2020-12-04 05:59] LABS: D Dimer 0.74 mg/L (0.19-0.50)
[2020-12-04 06:14] VITALS: PULSE 85
[2020-12-04] MEDS: KETOROLAC 30 MG/ML VIAL (*BKC) IV PUSH (06:15)
--- NOTE | 2020-12-04 06:16 | PC.NURSE ---
pt resting per cot, awaiting results, lights out for rest, warm blanket applied
--- NOTE | 2020-12-04 07:15 | PC.NURSE ---
report to vicky jamli. pt returned from xray department.
[2020-12-04 07:24] LABS: SARS-CoV-2 Ag Negative (Negative)
[2020-12-04 07:40] VITALS: BP 135/88; PULSE 84; O2SAT 93
[2020-12-04 08:09] LABS: Lipase 262 U/L (73-393)
[2020-12-04 09:08] LABS: Influenza Control Valid (Valid)
[2020-12-04 09:31] VITALS: BP 145/93; O2SAT 95
[2020-12-04 10:00] VITALS: TEMP 36.8
== END 2020-12-04 10:00 | disposition home or self-care (01) ==
PROVIDERS: Emergency Medicine; Emergency Provider Emergency Medicine; PCP Internal Medicine
DX: R07.9 Chest pain, unspecified (principal)
CPT/HCPCS: 36415; 71045; 71275; 80053; 83605; 83690; 83880; 84484; 85025; 85380; 87040; 87426; 87804; 93005; 96374; 99283; 99284; A9270; C9803; J1885; Q9967

== ENCOUNTER 2020-12-05 11:08 | Outpatient (CLI) | payer BC, SELFPAY ==
[2020-12-05 22:05] LABS: SARS-CoV-2 RNA PCR Negative
== END 2020-12-05 11:09 | disposition home or self-care (01) ==
PROVIDERS: PCP Internal Medicine; Visit Provider Internal Medicine
DX: Z20.822 Contact with and (suspected) exposure to COVID-19 (principal)
CPT/HCPCS: C9803; U0003; U0005

== ENCOUNTER 2020-12-09 11:03 | Outpatient (CLI) | payer BC, SELFPAY ==
[2020-12-09 11:13] LABS: Basophils Absolute Auto 0.07 K/mm3 (0.00-0.10); Basophils Percent Auto 0.8 % (0.0-1.0); Eosinophils Percent Auto 2.2 % (1.0-6.0); Hematocrit 44.6 % (35.0-49.0); Hemoglobin 14.1 g/dL (12.0-15.0); Immature Granulocyte Absolute 0.03 K/mm3 (0.00-0.00); Immature Granulocyte Percent A 0.3 % (0.0-0.0); Lymphocytes Absolute Auto 1.99 K/mm3 (1.10-4.50); Lymphocytes Percent Auto 21.5 % (18.0-42.0); Mean Corpuscular HGB Conc 31.6 g/dL (32.0-36.0); Mean Corpuscular Hemoglobin 28.7 pg (27.0-31.0); Mean Corpuscular Volume 90.7 fL (78.0-102.0); Mean Platelet Volume 10.5 fl (9.2-11.8); Monocytes Absolute Auto 0.53 K/mm3 (0.10-0.90); Monocytes Percent Auto 5.7 % (2.0-11.0); Neutrophils Absolute Auto 6.4 K/mm3 (1.7-7.2); Neutrophils Percent Auto 69.5 % (50.0-70.0); Platelet Count Result 280 K/mm3 (150-420); Red Blood Count 4.92 M/mm3 (4.20-5.40); Red Cell Distribution Width 13.6 % (11.6-14.4); White Blood Count 9.2 K/mm3 (4.8-10.8)
[2020-12-09 11:45] LABS: Alanine Aminotransferase 11 U/L (14-59); Albumin Level 3.4 g/dL (3.4-5.0); Alkaline Phosphatase 131 U/L (46-116); Anion Gap 12 mmol/L (8-16); Aspartate Amino Transferase 21 U/L (15-37); Bilirubin,Total 0.3 mg/dL (0.00-1.00); Blood Urea Nitrogen 14 mg/dL (7-18); Carbon Dioxide 26 mmol/L (21-32); Chloride 104 mmol/L (98-108); Estimated Glomerular Filt Rate 48; Glucose 95 mg/dL (70-99); Osmolality Calculated 294 mOsm/kg (285-295); Potassium 4.2 mmol/L (3.5-5.1); Sodium 142 mmol/L (136-145); Total Protein 7.1 g/dL (6.4-8.2)
== END 2020-12-09 11:04 | disposition home or self-care (01) ==
LOC: CHSLAB 11:04
PROVIDERS: PCP Internal Medicine; Visit Provider Internal Medicine
DX: J18.9 Pneumonia, unspecified organism (principal)
CPT/HCPCS: 36415; 80053; 85025

== ENCOUNTER 2020-12-26 13:32 | Emergency (ER) | payer BC, SELFPAY ==
--- NOTE | ~2020-12-26 | XR_ITS ---
XR chest 2V 12/26/2020 14:06 Indication: Dyspnea. Recent pneumonia. Procedure: 2 view chest Comparison: 12/04/2020 Findings: Heart size normal. There are bibasilar infiltrates which are likely atelectasis/scarring. N o pleural effusion or pneumothorax. Impression: 1: Linear bibasilar infiltrates which most likely represent atelectasis or scarring. Reviewed, dictated and finalized at location A. ER ANALYST Impression: 1: Linear bibasilar infiltrates which most likely represent atelectasis or scar ring.
[2020-12-26 13:50] VITALS: BP 135/93; PULSE 91; RESP 20; TEMP 36.7; O2SAT 96
--- NOTE | 2020-12-26 13:54 | ED.SOB ---
HPI - SOB/Dyspnea General Chief Complaint: Unspecified Stated Complaint: Doctor sent over Source: patient and RN notes reviewed Mode of arrival: ambulatory Limitations: no limitations History of Present Illness HPI Narrative: patient comes in because she was sent over by her doctor. She was at her doctor's office following up after a pneumonia from 2 weeks ago. She comes in saying that she was sent over for chest x-ray and blood work. She otherwise did not have any complaints. I called her doctor's office and they said that she signed in over there she wrote down that she was having chest pain shortness of breath and cough so they sent her straight to the ER. Patient does not think she wrote chest pain but she continues to be overall fatigued. MD elicited complaint: shortness of breath Pertinent past history: COPD Onset (ago): day(s) (5-6) Context: recent illness Timing: intermittent Severity: mild Exacerbating factors: nothing Relieving factors: rest Known history of: COPD Associated symptoms: denies other symptoms ( Except has chronic cough from her COPD) Treatment prior to arrival: none Related Data Home oxygen amount: none Home Medications Medication Instructions Recorded Confirmed bupropion HCl 300 mg PO DAILY 01/25/20 12/26/20 fluoxetine 40 mg PO DAILY 01/25/20 12/26/20 ergocalciferol (vitamin D2) 50,000 unit PO WEEKLY 03/11/20 12/26/20 [Vitamin D2] metoprolol succinate 25 mg PO DAILY 12/26/20 12/26/20 pantoprazole 40 mg PO DAILY 12/26/20 12/26/20 Allergies Allergy/AdvReac Type Severity Reaction Status Date / Time codeine AdvReac Nightmare Verified 12/26/20 14:00 Review of Systems Review of Systems: All systems reviewed & are unremarkable except as noted in HPI and below Constitutional: Constitutional: Reports fatigue PMFSH Past Medical History Medical History COPD (chronic obstructive pulmonary disease) Depression Dyslipidemia Pancreatitis Surgical History Surgical History History of S/P cholecystectomy Social History Social History Smoking packs per day: 10 Smoking cigarettes per day: 200.0 Years smoked: 46 Smoking pack-years: 460.00 Smoking status: Current every day smoker Tobacco type: cigarettes Second hand tobacco smoke exposure: Yes Alcohol intake: never Substance use: former Substance use type: crack/cocaine Last use: 15 yrs ago Gender identity (if verbalized by the patient): Female Spiritual care concerns: No Agree to blood products: Yes Exam Const: General: healthy appearing and no acute distress Nutritional Appearance: well nourished and obese centrally obese Orientation/consciousness: patient oriented x3 Limitations: no limitations Eyes: Conjunctivae: conjunctivae normal Pupils: Equal, round and reactive pupils present EOM: EOMs intact bilaterally Neck: Neck: normal visual inspection Resp: Effort & Inspection: normal respiratory effort Auscultation: clear to auscultation bilaterally ( short air exchange) Cardio: Rate: regular rate Rhythm: regular rhythm GI: GI Palp: Yes Soft to palpation and No Tenderness to palpation present (GI) Auscultation: normal bowel sounds Back/Spine/Pelvis: Cervical Spine: cervical ROM normal Thoracic/Lumbar Spine: thoraco-lumbar ROM normal Skin: General skin exam: normal color Rashes: no rashes Neuro: General: patient oriented x3, moves all extremities and no focal motor deficits Speech: normal speech Gait exam (Neuro): Normal gait present Extrem: General: normal to inspection and no clubbing, cyanosis or edema Psych: Mental Status: mental status grossly normal Affect: normal affect Attitude: cooperative Thought content: Yes Normal thought content present Course Vital Signs Vital signs: Vital Signs Temperature 36.7 C
[2020-12-26 14:18] LABS: Basophils Absolute Auto 0.07 K/mm3 (0.00-0.10); Basophils Percent Auto 0.9 % (0.0-1.0); Eosinophils Absolute Auto 0.26 K/mm3 (0.02-0.50); Eosinophils Percent Auto 3.2 % (1.0-6.0); Hematocrit 44.6 % (35.0-49.0); Hemoglobin 14.5 g/dL (12.0-15.0); Immature Granulocyte Absolute 0.01 K/mm3 (0.00-0.00); Immature Granulocyte Percent A 0.1 % (0.0-0.0); Lymphocytes Absolute Auto 2.44 K/mm3 (1.10-4.50); Mean Corpuscular HGB Conc 32.5 g/dL (32.0-36.0); Mean Corpuscular Hemoglobin 28.8 pg (27.0-31.0); Mean Corpuscular Volume 88.5 fL (78.0-102.0); Mean Platelet Volume 10.5 fl (9.2-11.8); Monocytes Percent Auto 7.4 % (2.0-11.0); Neutrophils Absolute Auto 4.8 K/mm3 (1.7-7.2); Neutrophils Percent Auto 58.4 % (50.0-70.0); Platelet Count Result 281 K/mm3 (150-420); Red Blood Count 5.04 M/mm3 (4.20-5.40); Red Cell Distribution Width 13.5 % (11.6-14.4); White Blood Count 8.1 K/mm3 (4.8-10.8)
[2020-12-26 14:32] LABS: Alanine Aminotransferase 23 U/L (14-59); Albumin Level 3.7 g/dL (3.4-5.0); Alkaline Phosphatase 138 U/L (46-116); Anion Gap 12 mmol/L (8-16); Aspartate Amino Transferase 29 U/L (15-37); Bilirubin,Total 0.3 mg/dL (0.00-1.00); Blood Urea Nitrogen 19 mg/dL (7-18); Calcium 9.2 mg/dL (8.5-10.1); Carbon Dioxide 26 mmol/L (21-32); Chloride 103 mmol/L (98-108); Estimated CRCL calculation 42 ml/min; Estimated Glomerular Filt Rate 40; Glucose 95 mg/dL (70-99); Osmolality Calculated 294 mOsm/kg (285-295); Potassium 3.6 mmol/L (3.5-5.1); Sodium 141 mmol/L (136-145); Total Protein 8.1 g/dL (6.4-8.2)
[2020-12-26 14:41] LABS: BNP 78 pg/mL (0-100)
[2020-12-26 14:52] VITALS: BP 132/88; PULSE 74; RESP 20; TEMP 36.6; O2SAT 97
[2020-12-26 15:41] LABS: Cholesterol 193 mg/dL (0-200); Free T3 2.37 pg/mL (2.18-3.98); Free T4 Free Thyroxine 0.97 ng/dL (0.76-1.46); HDL Direct 46 mg/dL (40-60); LDL Cholesterol Calculated 119 mg/dL (<130); Thyroid Stimulating Hormone 1.38 uIU/mL (0.36-3.74); Triglycerides 140 mg/dL (0-150)
[2020-12-26 16:27] LABS: Vitamin B12 277 pg/mL (193-986)
[2020-12-28 21:08] LABS: Vitamin D 25 Hydroxy 30 ng/mL (30-100)
== END 2020-12-26 14:54 | disposition home or self-care (01) ==
PROVIDERS: Emergency Provider Emergency Medicine; PCP Internal Medicine
DX: J44.9 Chronic obstructive pulmonary disease, unspecified (principal); E78.5 Hyperlipidemia, unspecified; E55.9 Vitamin D deficiency, unspecified; R53.83 Other fatigue; G31.84 Mild cognitive impairment of uncertain or unknown etiology; R06.02 Shortness of breath
CPT/HCPCS: 36415; 71046; 80053; 80061; 82306; 82607; 83735; 83880; 84439; 84443; 84481; 85025; 99283; 99284

== ENCOUNTER 2020-12-30 08:31 | Outpatient (CLI) | payer BC, SELFPAY ==
--- NOTE | 2020-12-30 08:41 | ECHO_ITS ---
Patient Info Name: Lisette Moreau Age: 60 years : 1960 Gender: Female Ht: 64 in Wt: 190 lbs BSA: 2.01 m2 HR: 108 bpm BP: 148 / 88 mmHg Heart Rhythm: Sinus Rhythm Technical Quality: Good Exam Date: 12/30/2020 8:47 AM Exam Location: [facility] Patient Status: Outpatient Admit Date: 12/30/2020 Staff Ordering Physician: Patience Rodgers MD Professor Of Medicine: Yennifer Grover RDCS Attending Provider: Patience Rodgers MD Referring Physician: Vishal ECHOLS; Exam Type: CA echo doppler color flow Study Info Indications R06.00 - Dyspnea, unspecified Complete two-dimensional, color flow and Doppler transthoracic echocardiogram is performed. Strain analysis performed. History/Risk Factors Hypertension: No Dyslipidemia: Yes Peripheral Arterial Disease (PAD): No Myocardial Infarction (PA): No Obesity: Yes Renal Disease: No Coronary Artery Disease (CAD) No Congestive Heart Failure (CHF): No Cardiomyopathy/LV Systolic Dysfunction: No Diabetes Mellitus: No COPD: On Meds Tobacco Use: Former Cerebrovascular Disease: No Family History: Diabetes Mellitus, Coronary Artery Disease Deep Vein Thrombosis (DVT): None Dialysis: None Frailty Scale (CSHA): 2: Well Cardiac Arrest: No Summary 1. Complete two-dimensional, color flow and Doppler transthoracic echocardiogram is performed. 2. Left ventricular chamber dimension is normal. 3. Left ventricular systolic function is normal, estimated at 55-60%. 4. The left ventricular diastolic function is grade I diastolic dysfunction. 5. E/e' 14 is mildly elevated. 6. Global longitudinal strain is normal at -18.3%. 7. There is mild mitral valve regurgitation. 8. There is trace pulmonic regurgitation. Left Ventricle E/e' 14 is mildly elevated. Global longitudinal strain is normal at -18.3%. Left ventricular chamber dimension is normal. Left ventricular systolic function is normal, estimated at 55-60%. The left ventricular diastolic function is grade I diastolic dysfunction. Right Ventricle Right ventricular chamber dimension is normal. Right ventricular systolic function is normal. Left Atria Left atrial chamber dimension is normal. Right Atria Right atrial chamber dimension is normal. Aortic Valve The aortic valve is trileaflet. There is no aortic valve stenosis. There is no aortic valve regurgitation. Pulmonic Valve There is trace pulmonic regurgitation. Mitral Valve There is no mitral valve stenosis. There is mild mitral valve regurgitation. Tricuspid Valve There is no tricuspid valve regurgitation. Pericardium/Pleural There is no pericardial effusion. Inferior Vena Cava Normal inferior vena cava with >50% collapse upon inspiration consistent with normal right atrial pressure, 5 mmHg. Aorta The aortic root size at the sinus of Valsalva is normal. Left Ventricular Outflow Tract Name Value Normal LVOT 2D LVOT Diameter 1.9 cm LVOT Doppler LVOT Peak Velocity 84 cm/s LVOT Peak Gradient 3 mmHg
== END 2020-12-30 08:32 | disposition home or self-care (01) ==
LOC: CHSIMG 08:32
PROVIDERS: PCP Internal Medicine; Visit Provider Internal Medicine
DX: R06.00 Dyspnea, unspecified (principal); J44.9 Chronic obstructive pulmonary disease, unspecified
CPT/HCPCS: 93306

== ENCOUNTER 2021-11-07 16:26 | Outpatient (CLI) | payer BC, SELFPAY ==
[2021-11-07 18:03] LABS: Influenza A QL RT-PCR Negative (Negative); Influenza B QL RT-PCR Negative (Negative); SARS-CoV-2 RNA PCR Negative (Negative)
== END 2021-11-07 16:27 | disposition home or self-care (01) ==
LOC: CHSLAB 16:27
PROVIDERS: PCP Internal Medicine; Visit Provider Internal Medicine
DX: Z20.822 Contact with and (suspected) exposure to COVID-19 (principal)
CPT/HCPCS: 87081; 87502; 87880; C9803; U0003; U0005

== ENCOUNTER 2021-11-08 18:59 | Outpatient (CLI) | payer BC, SELFPAY ==
--- NOTE | ~2021-11-08 | XR_ITS ---
EXAMINATION: XR chest 2V DATE: 11/08/2021 19:28 INDICATION: Shortness of breath TECHNIQUE: PA and lateral views of the chest are obtained. COMPARISON: 12/26/2020 FINDINGS: The lungs are free of acute opacities. There is no pleural effusion or pneumothorax. The ca rdiomediastinal silhouette is normal. There is mild thoracic spondylosis. Surgical clips in the right upper quadrant are likely from prior cholecystectomy. IMPRESSION: 1. No acute cardiopulmonary abnormality. Reviewed, dictated and finalized at location F. PMENT PROCESSER STORAGE
[2021-11-08 19:19] LABS: Hematocrit 46.1 % (35.0-49.0); Hemoglobin 14.4 g/dL (12.0-15.0); Mean Corpuscular HGB Conc 31.2 g/dL (32.0-36.0); Mean Corpuscular Hemoglobin 28.6 pg (27.0-31.0); Mean Corpuscular Volume 91.7 fL (78.0-102.0); Mean Platelet Volume 10.4 fl (9.2-11.8); Platelet Count Result 286 K/mm3 (150-420); Red Blood Count 5.03 M/mm3 (4.20-5.40); Red Cell Distribution Width 14.2 % (11.6-14.4); White Blood Count 8.5 K/mm3 (4.8-10.8)
[2021-11-08 20:17] LABS: Alanine Aminotransferase 23 U/L (14-59); Albumin Level 3.3 g/dL (3.4-5.0); Alkaline Phosphatase 183 U/L (46-116); Anion Gap 8 mmol/L (8-16); Aspartate Amino Transferase 20 U/L (15-37); Bilirubin,Total 0.2 mg/dL (0.00-1.00); Blood Urea Nitrogen 15 mg/dL (7-18); Calcium 8.7 mg/dL (8.5-10.1); Carbon Dioxide 30 mmol/L (21-32); Chloride 106 mmol/L (98-108); Estimated Glomerular Filt Rate 46; Glucose 105 mg/dL (70-99); Osmolality Calculated 298 mOsm/kg (285-295); Sodium 144 mmol/L (136-145); Total Protein 7.5 g/dL (6.4-8.2)
== END 2021-11-08 19:00 | disposition home or self-care (01) ==
LOC: CHSLAB 19:00
PROVIDERS: PCP Internal Medicine; Visit Provider Internal Medicine
DX: J44.1 Chronic obstructive pulmonary disease with (acute) exacerbation (principal); R06.00 Dyspnea, unspecified
CPT/HCPCS: 36415; 71046; 80053; 85027

== ENCOUNTER 2022-08-02 16:22 | Outpatient (CLI) | payer BC, SELFPAY ==
--- NOTE | ~2022-08-02 | XR_ITS ---
XR foot LT min 3V DATE: 08/02/2022 17:20 INDICATION: Left ankle and foot pain TECHNIQUE: 3 views COMPARISON: None FINDINGS: Minimal posterior and slight plantar calcaneal enthesopathy. There is mild osteoarthritis at the first metatarsophalangeal joint. No fracture, dislocation, periosteal reaction or bone destruction is detected. IMPRESSION: Minimal calcaneal enthesopathy and mild osteoarthritis at first metatarsophalangeal joint Reviewed, dictated and finalized at location B. IMPRESSION: Minimal calcaneal enthesopathy and mild osteoarthritis at first met atarsophalangeal joint
--- NOTE | ~2022-08-02 | XR_ITS ---
XR ankle LT min 3V DATE: 08/02/2022 17:19 INDICATION: Left ankle and foot pain TECHNIQUE: 4 views COMPARISON: None FINDINGS: Mild posterior and slight plantar calcaneal enthesopathy. No fracture or dislocation of the ankle or disruption of the ankle mortise is detected. IMPRESSION: Calcaneal enthesopathy Reviewed, dictated and finalized at location B. IMPRESSION: Calcaneal enthesopathy
== END 2022-08-02 16:23 | disposition home or self-care (01) ==
LOC: CHSIMG 16:24
PROVIDERS: PCP Internal Medicine; Visit Provider Internal Medicine
DX: M79.672 Pain in left foot (principal); M25.572 Pain in left ankle and joints of left foot
CPT/HCPCS: 73610; 73630

== ENCOUNTER 2022-11-16 15:34 | Emergency (ER) | payer BC, SELFPAY ==
[2022-11-16] VITALS (16 sets, daily range): BP systolic 155–182; BP diastolic 85–107; PULSE 63–84; RESP 11–27; TEMP 35.7; O2SAT 91–100
--- NOTE | ~2022-11-16 | CT_ITS ---
EXAMINATION: CTA chest PE protocol DATE: 11/16/2022 17:57 EVAPORATOR OPERATOR INDICATION: Elevated d-dimer. Covid positive. TECHNIQUE: Computed tomographic angiography (CTA) of the chest was performed with 100 mL Omnipaque-35 0 intravenous contrast. The dose-length product was 410.00 mGy-cm. Maximum intensity projection 3D-re constructions of the aorta and other arteries were constructed by the technologist on a separate work station. Automated exposure control and iterative reconstruction technique were employed. COMPARISON: CT dated 12/04/2020 FINDINGS: there is pulmonary arterial hypertension. Study is technically adequate without evidence fo r pulmonary embolism. There is mediastinal and hilar lymphadenopathy. There is atherosclerosis of the aorta. Borderline heart size. No significant pleural or pericardial effusion. Status post cholecyste ctomy with pneumobilia.. There is severe emphysema. There is bilateral lower lobe dependent consolida tion which may represent atelectasis and/or pneumonia. No endobronchial lesions. No pneumothorax. Mil d thoracic spondylosis. No acute bone or joint abnormality. IMPRESSION: 1. No large central pulmonary embolism. 2: Bibasilar dependent airspace consolidation, likely atelectasis versus pneumonia. 3: Severe emphysema. 4: Mediastinal and right hilar lymphadenopathy, likely reactive. Reviewed, dictated and finalized at location A. ORATOR OPERATOR IMPRESSION: 1. No large central pulmonary embolism. 2: Bibasilar dependent airspace consolidation, likely atelectasis versus pneumo claudia. 3: Severe emphysema. 4: Mediastinal and right hilar lymphadenopathy, likely reactive.
--- NOTE | ~2022-11-16 | XR_ITS ---
XR chest 1V portable DATE: 11/16/2022 16:37 INDICATION: Shortness of breath. History of COPD. TECHNIQUE: Portable upright AP chest on 11/16/2022 at 1645 hours COMPARISON: 11/08/2021 PA and lateral chest FINDINGS: There are relatively low lung volumes with diffuse bilateral pulmonary interstitial promine nce which may be due to chronic interstitial fibrotic change. Superimposed pulmonary interstitial pne umonia is not excluded. Pulmonary interstitial edema is an additional consideration in the differenti al diagnosis. No pleural effusion or pneumothorax is evident. Heart size is within normal range. Osteopenia. IMPRESSION: Diffuse pulmonary interstitial prominence of the lungs which may be due to any combinatio n pulmonary interstitial fibrosis, interstitial pneumonitis or edema Reviewed, dictated and finalized at location B. FIXER IMPRESSION: Diffuse pulmonary interstitial prominence of the lungs which may be due to any combination pulmonary interstitial fibrosis, interstitial pneumonit is or edema
--- NOTE | 2022-11-16 16:01 | ED.GENADULT ---
HPI - General Adult General Chief complaint: Upper Respiratory Infection Stated complaint: trouble breathing Time Seen by Provider: 11/16/22 15:48 History of Present Illness HPI narrative: This is a very pleasant 62-year-old female with history of COPD presents today with breathing. Patient COVID in October. Since then she has steadily improved until 3 days ago when she became acutely worse. She has been having sore throat, ear pain cough, chest pressure and dyspnea on exertion. Chest pressure started 3 days ago, described as a heaviness on chest that wraps around to back, 6 out intensity, constant. She has experienced this before when she has had COPD exacerbations, there are no exacerbating or alleviating factors. patient denies diaphoresis, or vomiting. Patient denies lower extremity edema, hemoptysis, history blood clots, recent trauma, surgery or bleed N/C. She does have a recent COVID-19 infection and has family hx of blood clots in her father. patient denies fever, chills, nausea, vomiting or diarrhea. Patient is a current smoker. Related Data Home Medications Medication Instructions Recorded Confirmed ergocalciferol (vitamin D2) 1,250 50,000 unit PO WEEKLY 03/11/20 11/16/22 mcg (50,000 unit) capsule (Vitamin D2) metoprolol succinate 25 mg 50 mg PO DAILY 12/26/20 11/16/22 tablet,extended release 24 hr pantoprazole 40 mg tablet,delayed 40 mg PO DAILY 12/26/20 11/16/22 release albuterol sulfate 90 mcg/actuation 1 puff inhalation Q4H PRN Wheezing 01/05/21 11/16/22 aerosol inhaler atorvastatin 20 mg tablet 20 mg PO DAILY 01/05/21 11/16/22 duloxetine 30 mg capsule,delayed 30 mg PO DAILY 11/16/22 11/16/22 release quetiapine 100 mg tablet 100 mg PO HS 11/16/22 11/16/22 vortioxetine 20 mg tablet 20 mg PO DAILY 11/16/22 11/16/22 (Trintellix) Allergies Allergy/AdvReac Type Severity Reaction Status Date / Time codeine AdvReac Nightmare Verified 11/16/22 15:46 [facility] Past Medical History Medical History COPD (chronic obstructive pulmonary disease) Depression Dyslipidemia GERD (gastroesophageal reflux disease) Pancreatitis Surgical History Surgical History History of S/P cholecystectomy Social History Social History Smoking packs per day: 10 Smoking cigarettes per day: 200.0 Years smoked: 46 Smoking pack-years: 460.00 Smoking status: Current every day smoker Tobacco type: cigarettes Second hand tobacco smoke exposure: Yes Alcohol intake: never Substance use: former Substance use type: crack/cocaine Last use: 15 yrs ago Gender identity (if verbalized by the patient): Female Spiritual care concerns: No Agree to blood products: Yes Exam Narrative: APPEARANCE: No apparent distress. Head: atraumatic. EYES: EOMI, NOSE: Atraumatic NECK: Trachea midline RESPIRATORY: Patient has 4-5 word dyspnea, diffuse expiratory wheezing and rhonchi in the lung bases. CARDIOVASCULAR: RRR, No peripheral edema ABDOMINAL: Non-distended MUSCULOSKELETAl: No obvious deformities NEURO: Alert. Moving 4/4 extremities SKIN:: Warm, dry. Normal color PSYCHIATRIC: Normal affect Course Vital Signs Vital signs: Vital Signs Temperature 96.3 F L 11/16/22 15:35 Pulse Rate 77 11/16/22 15:35 Respiratory Rate 16 11/16/22 15:35 Blood Pressure 163/102 H 11/16/22 15:35 Pulse Oximetry 96 11/16/22 15:35 Oxygen Delivery Room Air 11/16/22 15:35 Temperature 96.3 F L 11/16/22 15:35 Pulse Rate 64 11/16/22 18:16 Respiratory Rate 12 11/16/22 18:16 Blood Pressure 157/85 H 11/16/22 18:16 Pulse Oximetry 95 11/16/22 18:16 Oxygen Delivery Room Air 11/16/22 15:35 Medical Decision Making MDM Narrative Medical decision making narrative: DDX includes but not limited to: CO
[2022-11-16 16:08] LABS: Glucose Point of Care 116 mg/dl (65-105)
--- NOTE | 2022-11-16 16:14 | ECG_ITS ---
Measurements Intervals [place] Rate: 66 P: 47 WA: 178 QRS: 1 QRSD: 84 T: 30 QT: 393 QTc: 414 Interpretive Statements SINUS RHYTHM BASELINE ARTIFACT- AVR, AVL, AVF, V5 NORMAL ECG COMPARED TO ECG 12/04/2020 04:52:48 NO SIGNIFICANT CHANGES Electronically Signed On 11-16-2022 16:46:11 LOAN REVIEW MANAGER by Odilon Guevara D.O.
[2022-11-16] MEDS: IPRATROPIUM BR 0.02% INH SOLN 0.5 MG/2.5 ML VIAL 1.5 MG INHALATION (16:15)
[2022-11-16] MEDS: ALBUTEROL SULFATE NEB 2.5 MG/3 ML INH 15 MG INHALATION (16:15)
[2022-11-16] MEDS: MAGNESIUM SULF 2 GM/WATER 50ML 2 GM/50 ML BAG IVPB (16:24)
[2022-11-16] MEDS: SODIUM CHLORIDE 0.9% IV 1,000 ML 999 ML IV CONT (16:24)
[2022-11-16] MEDS: methylPREDNISolone SOD SUCC 125 MG VIAL IV PUSH (16:24)
[2022-11-16 16:35] LABS: Basophils Absolute Auto 0.08 K/mm3 (0.00-0.10); Basophils Percent Auto 0.8 % (0.0-1.0); Eosinophils Absolute Auto 0.18 K/mm3 (0.02-0.50); Eosinophils Percent Auto 1.9 % (1.0-6.0); Hematocrit 40.9 % (35.0-49.0); Hemoglobin 13.1 g/dL (12.0-15.0); Immature Granulocyte Absolute 0.03 K/mm3 (0.00-0.00); Immature Granulocyte Percent A 0.3 % (0.0-0.0); Lymphocytes Absolute Auto 2.66 K/mm3 (1.10-4.50); Lymphocytes Percent Auto 27.4 % (18.0-42.0); Mean Corpuscular Hemoglobin 28.8 pg (27.0-31.0); Mean Corpuscular Volume 89.9 fL (78.0-102.0); Mean Platelet Volume 10.7 fl (9.2-11.8); Monocytes Absolute Auto 0.66 K/mm3 (0.10-0.90); Monocytes Percent Auto 6.8 % (2.0-11.0); Neutrophils Absolute Auto 6.1 K/mm3 (1.7-7.2); Neutrophils Percent Auto 62.8 % (50.0-70.0); Platelet Count Result 249 K/mm3 (150-420); Red Blood Count 4.55 M/mm3 (4.20-5.40); Red Cell Distribution Width 14.4 % (11.6-14.4); White Blood Count 9.7 K/mm3 (4.8-10.8)
[2022-11-16 16:47] LABS: Influenza A QL RT-PCR Negative (Negative); Influenza B QL RT-PCR Negative (Negative); SARS-CoV-2 RNA PCR Positive (Negative)
--- NOTE | 2022-11-16 16:48 | PC.NURSE ---
ERP AT BEDSIDE. PT TOLERATED NEB TX WELL. NAD NOTED. PT HAS IVF AND IV MEDICATIONS INFUSING ORDERED WITHOUT DIFFICULTY. NAD NOTED. DAUGHTER AT BEDSIDE. WILL CONTINUE TO MONITOR.
[2022-11-16 16:49] LABS: RSV RNA, RT-PCR Negative (Negative)
[2022-11-16 16:49] LABS: Partial Thromboplastin Time 25.9 SEC (23.90-30.70); Prothrombin Time 10.8 Seconds (9.50-12.10)
[2022-11-16 16:52] LABS: D Dimer 0.95 mg/L (0.19-0.50)
[2022-11-16 16:54] LABS: Anion Gap 6 mmol/L (8-16); Blood Urea Nitrogen 11 mg/dL (7-18); Calcium 8.6 mg/dL (8.5-10.1); Carbon Dioxide 29 mmol/L (21-32); Chloride 105 mmol/L (98-108); Estimated CRCL calculation 45 ml/min; Estimated Glomerular Filt Rate 46; Glucose 106 mg/dL (70-99); Magnesium 2.1 mg/dL (1.8-2.4); Osmolality Calculated 289 mOsm/kg (285-295); Potassium 3.6 mmol/L (3.5-5.1); Sodium 140 mmol/L (136-145); Troponin I 6.8 ng/L (0.00-60.4)
[2022-11-16 17:00] LABS: NT Pro B Type Natriuretic Pept 229 pg/mL (0-125)
--- NOTE | 2022-11-16 17:27 | ED.GENADULT ---
HPI - General Adult General Chief complaint: Upper Respiratory Infection Stated complaint: trouble breathing Time Seen by Provider: 11/16/22 15:48 History of Present Illness HPI narrative: I resumed care from Dr. Magaña at 1645. Please see his note for further details of HPI. Related Data Home Medications Medication Instructions Recorded Confirmed ergocalciferol (vitamin D2) 1,250 50,000 unit PO WEEKLY 03/11/20 11/16/22 mcg (50,000 unit) capsule (Vitamin D2) metoprolol succinate 25 mg 50 mg PO DAILY 12/26/20 11/16/22 tablet,extended release 24 hr pantoprazole 40 mg tablet,delayed 40 mg PO DAILY 12/26/20 11/16/22 release albuterol sulfate 90 mcg/actuation 1 puff inhalation Q4H PRN Wheezing 01/05/21 11/16/22 aerosol inhaler atorvastatin 20 mg tablet 20 mg PO DAILY 01/05/21 11/16/22 duloxetine 30 mg capsule,delayed 30 mg PO DAILY 11/16/22 11/16/22 release quetiapine 100 mg tablet 100 mg PO HS 11/16/22 11/16/22 vortioxetine 20 mg tablet 20 mg PO DAILY 11/16/22 11/16/22 (Trintellix) Allergies Allergy/AdvReac Type Severity Reaction Status Date / Time codeine AdvReac Nightmare Verified 11/16/22 15:46 Review of Systems Review of Systems: All systems reviewed & are unremarkable except as noted in HPI and below PMFSH Past Medical History Medical History COPD (chronic obstructive pulmonary disease) Depression Dyslipidemia GERD (gastroesophageal reflux disease) Pancreatitis Surgical History Surgical History History of S/P cholecystectomy Social History Social History Smoking packs per day: 10 Smoking cigarettes per day: 200.0 Years smoked: 46 Smoking pack-years: 460.00 Smoking status: Current every day smoker Tobacco type: cigarettes Second hand tobacco smoke exposure: Yes Alcohol intake: never Substance use: former Substance use type: crack/cocaine Last use: 15 yrs ago Gender identity (if verbalized by the patient): Female Spiritual care concerns: No Agree to blood products: Yes Exam Const: General: healthy appearing and no acute distress Nutritional Appearance: well nourished Orientation/consciousness: patient oriented x3 HENMT: Head: normal to inspection Face/Nose/Sinus: Normal external nose present Eyes: Conjunctivae: conjunctivae normal Pupils: Equal, round and reactive pupils present Neck: Neck: normal visual inspection Chest: Chest palpation & inspection: normal inspection of the chest Resp: Other: Slight tachypnea with prolonged expiratory phase and diffuse wheezing. Coughing present on exam. Cardio: Rate: regular rate Rhythm: regular rhythm GI: Inspection: non-distended GI Palp: Yes Soft to palpation, No Tenderness to palpation present (GI) and No Guarding due to palpation present (GI) Back/Spine/Pelvis: Back: no CVA tenderness Skin: General skin exam: normal color Rashes: no rashes Neuro: General: patient oriented x3 and moves all extremities Cranial nerves: Yes Nystagmus not present Speech: normal speech Extrem: General: normal to inspection Psych: Mental Status: mental status grossly normal Course Course Emergency Course: assumed care at 1646 Labs showed +covid, elevated d-dimer, GFR o f 46, slightly elevated BNP Ordered CTA. EXAMINATION: CTA chest PE protocol DATE: 11/16/2022 17:57 INSPECTOR INSULATION INDICATION: Elevated d-dimer. Covid positive. TECHNIQUE: Computed tomographic angiography (CTA) of the chest was performed with 100 mL Omnipaque-350 intravenous contrast. The dose-length product was 410.00 mGy-cm. Maximum intensity projection 3D-reconstructions of the aorta and other arteries were constructed by the technologist on a separate workstation. Automated exposure control and iterative reconstruction technique were employed. COMPARISON: CT d
--- NOTE | 2022-11-16 17:29 | PC.NURSE ---
PT IS AWAITING CT AT THIS TIME. DAUGHTER AT BEDSIDE. PT REPORTS NO CHANGE IN SX AT THIS TIME. WILL CONTINUE TO MONITOR.
--- NOTE | 2022-11-16 17:59 | PC.NURSE ---
PT HAS RETURNED FROM CT, AWAITING RESULTS AT THIS TIME. DAUGHTER REMAINS AT BEDSIDE. NAD NOTED. WILL CONTINUE TO MONITOR.
[2022-11-16] MEDS: levoFLOXacin TAB 500 MG, levoFLOXacin TAB 250 MG 750 MG PO (18:24)
== END 2022-11-16 18:38 | disposition home or self-care (01) ==
PROVIDERS: Emergency Medicine; Emergency Provider Family Medicine; PCP Internal Medicine
DX: J44.1 Chronic obstructive pulmonary disease with (acute) exacerbation (principal); E78.5 Hyperlipidemia, unspecified; K21.9 Gastro-esophageal reflux disease without esophagitis; F32.A Depression, unspecified; F17.210 Nicotine dependence, cigarettes, uncomplicated; Z79.51 Long term (current) use of inhaled steroids; Z20.822 Contact with and (suspected) exposure to COVID-19
CPT/HCPCS: 36415; 71045; 71275; 80048; 82948; 83735; 83880; 84484; 85025; 85380; 85610; 85730; 87637; 93005; 94640; 96365; 96375; 99284; A9270; J2930; J3475; J7030; Q9967

== ENCOUNTER 2023-01-05 08:49 | Emergency (ER) | payer BC, SELFPAY ==
[2023-01-05] VITALS (19 sets, daily range): BP systolic 137–148; BP diastolic 77–105; PULSE 68–83; RESP 16–28; TEMP 36.9; O2SAT 90–100
--- NOTE | ~2023-01-05 | XR_ITS ---
XR chest 2V DATE: 01/05/2023 11:27 INDICATION: Chest pain, shortness breath and cough. History of emphysema. TECHNIQUE: PA and lateral views COMPARISON: 11/16/2022 CTA chest 11/16/2022 portable AP chest FINDINGS: Chronic diffuse bilateral pulmonary interstitial changes. No pulmonary consolidation, pleur al effusion or pulmonary vascular congestion or pneumothorax. Normal heart size. There is aortic unfolding. Diffuse osteopenia. Status post cholecystectomy. IMPRESSION: Chronic diffuse pulmonary interstitial changes; no pulmonary consolidation is evident Reviewed, dictated and finalized at location A. URCE ECONOMIST IMPRESSION: Chronic diffuse pulmonary interstitial changes; no pulmonary consol idation is evident
--- NOTE | 2023-01-05 08:55 | ECG_ITS ---
Measurements Intervals [place] Rate: 82 P: 38 CT: 158 QRS: -1 QRSD: 85 T: 33 QT: 349 QTc: 409 Interpretive Statements SINUS RHYTHM WITHIN NORMAL LIMITS COMPARED TO ECG 11/16/2022 16:14:59 NO SIGNIFICANT CHANGES Electronically Signed On 01-06-2023 7:57:53 OPERATIONS CHIEF by Artie Hess M.D.
[2023-01-05 09:09] LABS: Basophils Absolute Auto 0.1 K/mm3 (0.0-0.1); Basophils Percent Auto 0.7 % (0.2-1.2); Eosinophils Absolute Auto 0.2 K/mm3 (0-0.3); Eosinophils Percent Auto 1.1 % (0-4.4); Hemoglobin 14.3 g/dL (12.0-15.0); Immature Granulocyte Absolute 0.04 K/mm3 (0.00-0.031); Immature Granulocyte Percent A 0.3 % (0-0.5); Lymphocytes Absolute Auto 1.88 K/mm3 (0.9-3.2); Mean Corpuscular HGB Conc 32.5 g/dl (32-36); Mean Corpuscular Hemoglobin 28.4 pg (26-34); Mean Corpuscular Volume 87.5 fl (80-100); Mean Platelet Volume 10.6 fl (7.4-10.4); Monocytes Absolute Auto 0.8 K/mm3 (0.1-0.6); Monocytes Percent Auto 5.6 % (2.6-8.5); Neutrophils Absolute Auto 10.5 K/mm3 (1.3-6.7); Neutrophils Percent Auto 78.3 % (45.5-73.1); Platelet Count Result 249 k/mm3 (150-375); Red Blood Count 5.03 M/mm3 (4.2-5.4); Red Cell Distribution Width 14.2 % (11.5-14.5); White Blood Count 13.4 K/mm3 (4.5-10.0)
[2023-01-05 09:19] LABS: Prothrombin Time 12.5 Seconds (11.1-14.7)
[2023-01-05 09:20] LABS: Alanine Aminotransferase 17 U/L (6-35); Albumin Level 4.1 g/dL (3.5-5.1); Alkaline Phosphatase 175 U/L (38-126); Anion Gap 4 mmol/L (8-16); Aspartate Amino Transferase 22 U/L (14-36); Bilirubin,Total 0.8 mg/dL (0.2-1.3); Blood Urea Nitrogen 10 mg/dL (7-17); Calcium 8.9 mg/dL (8.4-10.2); Carbon Dioxide 27 mmol/L (22-30); Chloride 108 mmol/L (98-107); Estimated CRCL calculation 55 ml/min; Estimated Glomerular Filt Rate 56; Glucose 131 mg/dL (65-110); Lipase 147 U/L (23-300); Partial Thromboplastin Time 26.4 SECONDS (22.3-36.8); Sodium 139 mmol/L (137-145)
[2023-01-05 09:32] LABS: Troponin I < 0.012 ng/mL (0.000-0.034)
[2023-01-05] MEDS: KETOROLAC 15 MG/ML VIAL (*BKC) IV PUSH (09:40)
[2023-01-05] MEDS: ALBUTEROL SULFATE NEB 2.5 MG/3 ML INH 15 MG INHALATION (09:52)
[2023-01-05] MEDS: IPRATROPIUM BR 0.02% INH SOLN 0.5 MG/2.5 ML VIAL 1.5 MG INHALATION (09:53)
--- NOTE | 2023-01-05 11:59 | ED.GENADULT ---
HPI - General Adult General Chief complaint: Chest Pain Stated complaint: Chest Pain Time Seen by Provider: 01/05/23 08:53 History of Present Illness HPI narrative: Patient is a 62-year-old female who presents ER with chest pain. Began this morning. Tightness in her chest. Associated cough and shortness of breath. No history of heart disease. Does have history of COPD. She is wheezing. No improvement with her inhaler at home. Related Data Home Medications Medication Instructions Recorded Confirmed ergocalciferol (vitamin D2) 1,250 50,000 unit PO WEEKLY 03/11/20 11/16/22 mcg (50,000 unit) capsule (Vitamin D2) metoprolol succinate 25 mg 50 mg PO DAILY 12/26/20 11/16/22 tablet,extended release 24 hr pantoprazole 40 mg tablet,delayed 40 mg PO DAILY 12/26/20 11/16/22 release albuterol sulfate 90 mcg/actuation 1 puff inhalation Q4H PRN Wheezing 01/05/21 11/16/22 aerosol inhaler atorvastatin 20 mg tablet 20 mg PO DAILY 01/05/21 11/16/22 duloxetine 30 mg capsule,delayed 30 mg PO DAILY 11/16/22 11/16/22 release quetiapine 100 mg tablet 100 mg PO HS 11/16/22 11/16/22 vortioxetine 20 mg tablet 20 mg PO DAILY 11/16/22 11/16/22 (Trintellix) Allergies Allergy/AdvReac Type Severity Reaction Status Date / Time codeine AdvReac Nightmare Verified 01/05/23 09:04 Review of Systems Review of Systems: All systems reviewed & are unremarkable except as noted in HPI and below Constitutional: Constitutional: Denies chills, Denies fatigue and Denies fever(s) ENT: Denies nasal congestion and Denies sore throat Cardiovascular: Cardiovascular: Reports chest pain, Denies rapid heart rate and Denies radiating jaw, neck or arm pain Respiratory: Respiratory: Reports cough, Reports dyspnea and Reports wheezing Gastrointestinal: Gastrointestinal: Denies abdominal pain, Denies nausea and Denies vomiting [facility] Past Medical History Medical History COPD (chronic obstructive pulmonary disease) Depression Dyslipidemia GERD (gastroesophageal reflux disease) Pancreatitis Surgical History Surgical History History of S/P cholecystectomy Social History Social History Smoking packs per day: 10 Smoking cigarettes per day: 200.0 Years smoked: 46 Smoking pack-years: 460.00 Smoking status: Current every day smoker Tobacco type: cigarettes Second hand tobacco smoke exposure: Yes Alcohol intake: never Substance use: former Substance use type: crack/cocaine Last use: 15 yrs ago Living arrangements: with family Gender identity (if verbalized by the patient): Female Spiritual care concerns: No Agree to blood products: Yes Exam Narrative: GENERAL: Well-appearing, well-nourished, and in no acute distress. HEAD: Normocephalic, atraumatic. EYES: PERRL and EOMI. ENT: Mucous membranes moist. CHEST: Coarse expiratory wheezing bilaterally.. No respiratory distress. HEART: Regular rate and rhythm. Normal peripheral pulses. ABDOMEN: Soft, nontender, nondistended. EXTREMITIES: Normal range of motion. No edema. SKIN: Warm, dry, no rash. NEURO: Alert and oriented x3. PSYCH: Normal mood and affect. Course Course Emergency Course: Pain resolved with nebulizer treatment. Lungs also sound markedly improved. We will treat as COPD exacerbation. Troponins negative x2. Vital Signs Vital signs: Vital Signs Temperature 98.4 F 01/05/23 08:59 Pulse Rate 83 01/05/23 08:59 Respiratory Rate 16 01/05/23 08:59 Blood Pressure 148/98 H 01/05/23 08:59 Pulse Oximetry 96 01/05/23 08:59 Oxygen Delivery Room Air 01/05/23 08:59 Temperature 98.4 F 01/05/23 08:59 Pulse Rate 81 01/05/23 09:06 Respiratory Rate 16 01/05/23 08:59 Blood Pressure 148/98 H 01/05/23 08:59 Pulse Oximetry 96 01/05/23 08:59 Oxyge
[2023-01-05 12:26] LABS: Troponin I < 0.012 ng/mL (0.000-0.034)
[2023-01-05] MEDS: predniSONE 40 MG, predniSONE 10 MG 50 MG PO (12:35)
== END 2023-01-05 13:10 | disposition home or self-care (01) ==
PROVIDERS: Emergency Provider Emergency Medicine; PCP Internal Medicine
DX: J44.1 Chronic obstructive pulmonary disease with (acute) exacerbation (principal); E78.5 Hyperlipidemia, unspecified; K21.9 Gastro-esophageal reflux disease without esophagitis; F32.A Depression, unspecified; F17.210 Nicotine dependence, cigarettes, uncomplicated
CPT/HCPCS: 36415; 71046; 80053; 83690; 84484; 85025; 85610; 85730; 93005; 96374; 99284; J1885; J7512